=== PATIENT | female | born 1935 | race Caucasian/White ===

== ENCOUNTER 2019-03-16 15:11 | Observation (INO) ==
[2019-03-16 16:09] LABS: Basophils # 0.1 K/mm3 (0-0.2); Basophils % 0.5 % (0.1-2.0); Eosinophils # 0.1 K/mm3 (0.0-0.4); Eosinophils % 0.9 % (0.1-12.0); Hematocrit 35.7 % (37.0-47.0); Hemoglobin 12.4 g/dL (12.2-16.2); Lymphocytes # 2.6 K/mm3 (0.7-4.5); Lymphocytes % 17.7 % (10-50); Mean Corpuscular HGB Conc 34.7 g/dL (31.8-35.4); Mean Corpuscular Hemoglobin 32.1 pg (27.0-31.2); Mean Corpuscular Volume 92.4 fl (81-99); Mean Platelet Volume 7.5 fl (7.4-10.4); Monocytes # 0.9 K/mm3 (0.1-1.0); Neutrophils # 10.8 K/mm3 (1.8-7.8); Platelet Count 351 K/mm3 (142-424); Red Blood Count 3.86 M/mm3 (4.20-5.40); Red Cell Distribution Width 13.7 % (11.5-17.5); White Blood Count 14.4 K/mm3 (4.8-10.8)
--- NOTE | 2019-03-16 16:11 | Emergency Department Note ---
ED Disposition Clinical Impression: Confusion Altered mental status Qualifiers: Altered mental status type: unspecified Qualified Code(s): R41.82 - Altered mental status, unspecified Speech abnormality Qualifiers: Speech disturbance type: unspecified speech disturbance Qualified Code(s): R4 7.9 - Unspecified speech disturbances Disposition: Admitted as Observation Condition on Discharge: [facility] Critical Care Critical Care Time: No Attestation: On 03/16/19, the high probability of a clinically significant, sudden or life threatening deterioration of the following system(s) required my full and direct attention, intervention and personal management. The time I documented below is in addition to time spent performing reported procedures but includes the following listed in this critical care notation. Medical Decision Making - James Inquiry Pt receiving controlled substance: Yes James was queried for this patient: Yes Reference #:: [id number] Risks and benefits of using a controlled substance: were not discussed with pt by me Comment: 16 rxs. last rx 30 norco 4/ Vital Signs: 03/16/19 15:20 03/16/19 15:42 03/16/19 16:50 Temperature 98.3 F Temperature Source Oral Pulse Rate [Right Radial] 110 H 106 H 104 H Respiratory Rate 20 20 20 Blood Pressure [Right Arm] 155/91 H 156/96 H 162/81 H Blood Pressure Mean [Right Arm] 112 116 108 Blood Pressure Source [Right Arm] Automatic Cuff Automatic Cuff Automatic Cuff Blood Pressure Position [Right Arm] Sitting Sitting Sitting 02 Sat by Pulse Oximetry 95 98 99 Oxygen Delivery Method Room Air Room Air Room Air - Lab Data Lab Results 03/16/19 15:30: WBC 14.4 H, RBC 3.86 L, Hgb 12.4, Hct 35.7 L, MCV 92.4, MCH 32.1 H, MCHC 34.7, RDW 13.7, Plt Count 351, MPV 7.5, Neut % (Auto) 75.0, Lymph % (Auto) 17.7, [place] % (Auto) 6.0, Eos % (Auto) 0.9, Baso % (Auto) 0.5, Neut # (Auto) 10.8 H, Lymph # (Auto) 2.6, [place] # (Auto) 0.9, Eos # (Auto) 0.1, Baso # (Auto) 0.1 03/16/19 15:30: Sodium 130 L, Potassium 3.6, Chloride 94 L, Carbon Dioxide 27, Anion Gap 12.6, BUN 13, Creatinine 0.66, Estimated Creat Clear 31, Estimated GFR 86, Est GFR ( Amer) 103, Glucose 93, Calcium 8.7, Total Bilirubin 0.5, AST 29, ALT 28, Alkaline Phosphatase 124 H, Total Protein 7.8, Albumin 3.9, Globulin 3.9 H, Albumin/Globulin Ratio 1.0 L 03/16/19 15:30: TSH 4.53 H 03/16/19 15:30: Troponin I < 0.02 03/16/19 15:49: Urine Color Straw, Urine Appearance Clear, Urine pH 7.0, Ur Specific [place] <= 1.005, Urine Protein Negative, Urine Glucose (UA) Negative, Urine Ketones Negative, Urine Blood 2+, Urine Nitrate Negative, Urine Bilirubin Negative, Urine Urobilinogen 0.2, Ur Leukocyte Esterase Negative, Urine RBC 3-5, Urine WBC Occasional, Ur Squamous Epith Cells Occasional, Urine Bacteria Trace Result diagrams: 03/16/19 15:30 03/16/19 15:30 Orders (Tests/Meds): ED MEDICATIONS Generic Name Dose Route Start Last Admin Trade Name Freq PRN Reason Stop Dose Admin Sodium Chloride 2 ml 03/16/19 17:18 Saline Flush 10ml Syringe IV 04/15/19 17:17 NEEDED PRN to Dilute Lorazepam inj Discontinued Medications Generic Name Dose Route Start Last Admin Trade Name Freq PRN Reason Stop Dose Admin Lorazepam 0.5 mg 03/16/19 17:18 03/16/19 17:29 Ativan 2mg/Ml Vial IV 03/16/19 17:19 0.5 mg ONCE ONE Administration Morphine Sulfate 4 mg 03/16/19 16:40 03/16/19 16:43 Morphine 4mg/Ml Syringe IV 03/16/19 16:41 4 mg ONCE ONE Administration Ondansetron HCl 4 mg 03/16/19 16:40 03/16/19 16:43 Zofran 4mg/2ml Vial IV 03/16/19 16:41 4 mg ONCE ONE Administration ORDERS Category Date Time Status XR chest portable Stat Exams 03/16/19 16:53 Ordered - CT Data CT Scan: Head Time Received: 16:[address] Reviewed: Yes: I have viewed the radiologist's interpretation Preliminary Findings: Normal/NAD - ECG Data Tracing #1 EKG interpreted by Omar Pichardo MD: Rhythm: sinus tachycardia Rate: 104 [place]: normal Ectopy: none Conduction: normal ST Segment Changes: none T Wave Changes: none Q Waves: none No evidence of acute ischemia or injury - Physician Consults Physician Consulted: Artem Richey Time: 17:18 Reason -: Admission Comment/Response: Agrees to admit the patient to the hospital. We discussed the patient's clinical information, including history, exam, laboratory and radiology results and ED course. Per hospital procedure, I will write temporary bridge inpatient orders on the patient. Specific orders requested by the admitting physician: IV fluids, low-dose morphine 1 mg every 4 hours as needed for severe pain, Ativan 0.5 mg every 6 hours as needed for agitation. General Adult HPI - General Chief complaint: Altered Mental Status Stated complaint: Pain Time Seen by Provider: 03/16/19 16:25 Mode of Arrival: Ambulatory Limitations: No Limitations Description of Symptoms (Recalled from ER Triage Doc. by RN): Pt son reports pt has been c/o pain in neck and shoulders today and has been confused. Pt son reports pt has had periods of confusion before when in pain. Pt son reports he has been with pt since 2:30 this afternoon and confusion and random speech has gotten worse. Pt unable to restate , pt not oriented. [facility] staff called service captain of pt, states pt is not acting her normal today, states pt has been going in and outside multiple times t/o the day, sitting down in the rocks outside. States pt has hx of chronic pain, reports pt was given "a pain pill" at 1200 today. States they "dipped" pts urine today and it was negative - History of Present Illness HPI narrative: History obtained from patient and son. She is brought from [facility]. Patient complains of pain all over. Son states that she has been confused today, very restless. He says that she gets this way whenever she is in pain. He also notices in the emergency room that she is having difficulty speaking. She does fine with yes and no questions, but otherwise is difficult to understand. With previous episodes, her speech has not been this bad. She has a history of chronic low back pain. She had surgery in November. She was discharged home, but then developed colitis and was admitted to [facility]. After that she had an episode where she fell out of bed, and has since been permanently admitted to [facility]. Son states that she is supposed to be on hydrocodone 3 times a day, but he says that he has reviewed her medications with staff at [facility] and she has only gotten 2 doses in the past week. She is requesting pain medication. He questions whether she could be in withdrawal. He says she has not otherwise been ill recently, no fevers, vomiting, diarrhea, cough, urinary symptoms. - Related Data Home Medications Medication Instructions Recorded Confirmed baclofen 10 mg tablet 10 mg PO BID PRN 01/27/19 03/16/19 docusate sodium 100 mg capsule 100 mg PO DAILY 01/27/19 03/16/19 latanoprost 0.005 % eye drops 1 drp OPHTHALMIC QPM 01/27/19 03/16/19 levothyroxine 88 mcg tablet 88 mcg PO .every other day tab 01/27/19 03/16/19 meloxicam 7.5 mg tablet 7.5 mg PO DAILY 01/27/19 03/16/19 Hydrocod/Acet 5/325 mg [[place] 1 tab PO TID 03/16/19 03/16/19 5/325mg tablet] Allergies Allergy/AdvReac Type Severity Reaction Status Date / Time No Known Allergies Allergy Verified 03/07/19 15:50 [facility] History - Hepatitis A Screen Drug use history?: No High risk sexual behaviors?: No History of sexually transmitted infection?: No Currently employed?: No Childcare worker?: No Do you have indoor plumbing?: Yes Do you have electricity?: Yes Attestation statement:: This patient has been screened for Hepatitis A risk factors. I have reviewed the patient's past medical history: Yes Medical History: Reports:: Osteoporosis Denies:: Diabetes Mellitus Type 1, Diabetes Mellitus Type 2 Other Medical History: Reports: Osteoporosis, Thyroid Disease, Other (chronic pain ) Amputation: No - Social History Smoking Status: Unknown if ever smoked Alcohol Intake: never Occupational Status: retired Housing: assisted living facility - Psychiatric History Expresses thoughts of harming self/others: None Suicide Plan Description: No Plan ROS Obtained: Yes All systems reviewed & no additional complaints, Yes other (Whole body hurts) - Constitutional Constitutional: Denies fever(s) - Respiratory Respiratory: No cough, No dyspnea - Gastrointestinal Gastrointestingal: Denies: diarrhea, nausea, vomiting - Neurologic Neurologic: Reports as per HPI Physical Exam - General General appearance: alert, anxious, other (Very restless and anxious) - Head Head exam: atraumatic, normocephalic - Eye Eye exam: Present: normal appearance, PERRL, EOMI - ENT ENT exam: Present: mucous membranes moist - Neck Neck exam: Present: normal inspection, full ROM. Absent: meningismus - Chest Chest inspection: Present: normal inspection, symmetric chest wall rise - Respiratory Respiratory exam: Present: normal lung sounds bilaterally. Absent: respiratory distress - Cardiovascular Cardiovascular exam: Present: regular rate, normal rhythm, normal heart sounds - Abdominal Exam Abdominal exam: Present: soft, normal bowel sounds. Absent: distention - Extremities Exam Extremities exam: Present: normal inspection, full ROM. Absent: pedal edema, joint swelling - Neurological Exam Neurological exam: Present: alert, CN II-XII intact. Absent: motor sensory def icit - Psychiatric Psychiatric exam: Present: anxious - Skin Skin exam: Present: warm, dry
[2019-03-16 16:18] LABS: Albumin Level 3.9 gm/dL (3.4-5.0); Anion Gap 12.6 mEq/L (5-15); Bilirubin,Total 0.5 mg/dL (0.2-1.0); Calcium 8.7 mg/dL (8.5-10.1); Globulin 3.9 gm/dl (1.3-3.2); Potassium 3.6 mmoL/L (3.5-5.1); Total Protein,Serum 7.8 gm/dL (6.4-8.2)
[2019-03-16 16:24] LABS: Microscopic, Urine URINE MICROSCOPIC (MICROSCOPIC)
[2019-03-16 16:26] LABS: Appearance,Urine CLEAR (Clear); Bilirubin,Urine Negative (Negative); Blood, Urine 2+ (Negative); Color,Urine STRAW (Yellow); Glucose,Urine (UA) Negative (Negative); Ketones,Urine Negative (Negative); Leukocyte Esterase,Urine Negative (Negative); Protein,Urine Negative (Negative); Specific Gravity, Urine <= 1.005 (1.005-1.030); Urobilinogen,Urine 0.2 EU/dl (0.2)
[2019-03-16 16:35] LABS: Squamous Epithelial Cell,Urine Occasional #/hpf (0-5); WBC,Urine Occasional #/hpf (0-3)
[2019-03-16 16:36] LABS: Bacteria,Urine Trace /lpf
--- NOTE | 2019-03-17 07:21 | Pharmacy Consult Notes ---
[facility] Pharmacy VTE Monitoring - Patient Demographics Admission date: 03/16/19 Report Date: 03/17/19 Time: 07:20 Allergies/Adverse Reactions: Patient Allergies No Known Allergies Allergy (Verified 03/07/19 15:50) Height: 1.68 m Weight: 50.944 kg Patient Problems: Current Active Problems (Updated 03/16/19 @ 18:07 by Omar Pichardo MD) Confusion (Acute) Altered mental status (Acute) Speech abnormality (Acute) - VTE Risk Labs: VTE Related Lab Results Hgb 12.4 g/dL (12.2-16.2) 03/16/19 15:30 Hct 35.7 % (37.0-47.0) L 03/16/19 15:30 Plt Count 351 K/mm3 (142-424) 03/16/19 15:30 BUN 13 mg/dL (7-18) 03/16/19 15:30 Creatinine 0.66 mg/dL (0.55-1.02) 03/16/19 15:30 Estimated Creat Clear 31 mL/min (50-200) 03/16/19 15:30 Was VTE Risk Assessment Performed: Yes VTE Score: 1 VTE Risk Level: Very Low Risk Clinical Trial Participant: No - Prophylaxis VTE Prophylaxis Ordered?: Yes Types of VTE Prophylaxis: TEDS Knee High Location of Applied Device: Bilateral Lower Extremeties
--- NOTE | 2019-03-17 14:19 | History & Physical Report ---
*Admission Date: 03/16/19 *Chief complaint: confusion *History of present illness: this wf was brought by family to ed for eval of confusion - pt has occ faalls and has chronic back pain and was felt to be different than baseline by [facility] staff and family - no reported fever - she was seen in the ed -t son reports pt has been c/o pain in neck and shoulders today and has been confused. Pt son reports pt has had periods of confusion before when in pain. Pt son reports he has been with pt since 2:30 this afternoon and confusion and random speech has gotten worse. Pt unable to restate , pt not oriented. [facility] staff called seating captain of pt, states pt is not acting her normal today, states pt has been going in and outside multiple times t/o the day, sitting down in the rocks outside. States pt has hx of chronic pain, reports pt was given "a pain pill" at 1200 today. States they "dipped" pts urine today and it was negative History obtained from patient and son. She is brought from [facility]. Patient complains of pain all over. Son states that she has been confused today, very restless. He says that she gets this way whenever she is in pain. He also notices in the emergency room that she is having difficulty speaking. She does fine with yes and no questions, but otherwise is difficult to understand. With previous episodes, her speech has not been this bad. She has a history of chronic low back pain. She had surgery in November. She was discharged home, but then developed colitis and was admitted to [facility]. After that she had an episode where she fell out of bed, and has since been permanently admitted to [facility]. Son states that she is supposed to be on hydrocodone 3 times a day, but he says that he has reviewed her medications with staff at [facility] and she has only gotten 2 doses in the past week. She is requesting pain medication. He questions whether she could be in withdrawal. He says she has not otherwise been ill recently, no fevers, vomiting, diarrhea, cough, urinary symptoms. pt was admitted for eval and fluids [facility] History I have reviewed the patient's past medical history: Yes Medical History: Reports:: Osteoporosis Denies:: Cancer, Diabetes Mellitus Type 1, Diabetes Mellitus Type 2, MRSA *Have you ever received a pneumonia vaccine?: Yes *Have you received a flu vaccine this season?: Yes Other Medical History: Reports: Osteoporosis, Thyroid Disease (hypothyroidism), Other (chronic pain ) Amputation: No - *Social History Educational Level: Attended College Smoking Status: Unknown if ever smoked Alcohol Intake: never *Occupational Status:: retired Housing: assisted living facility *Travel in the last 8 weeks: Inside the [place] - Psychiatric History Expresses thoughts of harming self/others: None Suicide Plan Description: No Plan Family Hx:: Cancer Review of Systems - Review of Systems Review of systems:: pertinent systems reviewed and negative unless documented below - Constitutional Reports weakness, Denies fever(s) - Eyes Denies change in vision - ENT Denies sore throat - *Cardiovascular Denies chest pain at rest - *Respiratory Denies cough - *Gastrointestinal Reports nausea, Denies abdominal pain - *Genitourinary Denies blood in urine - *Musculoskeletal Reports joint pain, Reports back pain - Integumentary/Breasts Denies rash - *Neurologic Reports confusion, Reports frequent falls, Denies seizure-like activity - Psychiatric Reports anxiety Meds Home Medications Medication Instructions Recorded Confirmed Type baclofen 10 mg tablet 10 mg PO BIDP PRN 01/27/19 03/17/19 History docusate sodium 100 mg capsule 100 mg PO DAILY 01/27/19 03/17/19 History latanoprost 0.005 % eye drops 1 drp OPHTHALMIC QPM 01/27/19 03/17/19 History levothyroxine 88 mcg tablet 88 mcg PO Q48H tab 01/27/19 03/17/19 History meloxicam 7.5 mg tablet 7.5 mg PO DAILY 01/27/19 03/17/19 History Hydrocod/Acet 5/325 mg [[place] 1 tab PO TIDP PRN 03/16/19 03/17/19 History 5/325mg tablet] Acetaminophen [Tylenol 325mg 650 mg PO Q6HP PRN 03/17/19 03/17/19 History Tablet] Acetaminophen/Diphenhydramine 1 each PO HS 03/17/19 03/17/19 History [Tylenol Pm Ex-Strength Caplet] Ondansetron HCl [Ondansetron 4mg 8 mg PO Q8HP PRN 03/17/19 03/17/19 History Tablet] Polyethylene Glycol 3350 [Miralax 17 gm PO DAILYP PRN 03/17/19 03/17/19 History Powder] Polyvinyl Alcohol/Povidone 1 drp EYE-LEFT Q1H 03/17/19 03/17/19 History [Artificial Tears Drops] Tobramycin [Tobrex] 5 ml EYE-LEFT QID 03/17/19 03/17/19 History Allergies Allergy/AdvReac Type Severity Reaction Status Date / Time No Known Allergies Allergy Verified 03/07/19 15:50 Exam Vital signs and Labs for Last 24 Hours: Temp Pulse Resp BP Pulse Ox 98.3 F 91 H 16 117/63 97 03/17/19 08:00 03/17/19 08:00 03/17/19 08:00 03/17/19 08:00 03/17/19 08:00 Laboratory Results - last 24 hr 03/16/19 15:30: WBC 14.4 H, RBC 3.86 L, Hgb 12.4, Hct 35.7 L, MCV 92.4, MCH 32.1 H, MCHC 34.7, RDW 13.7, Plt Count 351, MPV 7.5, Neut % (Auto) 75.0, Lymph % (Auto) 17.7, [place] % (Auto) 6.0, Eos % (Auto) 0.9, Baso % (Auto) 0.5, Neut # (Auto) 10.8 H, Lymph # (Auto) 2.6, [place] # (Auto) 0.9, Eos # (Auto) 0.1, Baso # (Auto) 0.1 03/16/19 15:30: Sodium 130 L, Potassium 3.6, Chloride 94 L, Carbon Dioxide 27, Anion Gap 12.6, BUN 13, Creatinine 0.66, Estimated Creat Clear 31, Estimated GFR 86, Est GFR ( Amer) 103, Glucose 93, Calcium 8.7, Total Bilirubin 0.5, AST 29, ALT 28, Alkaline Phosphatase 124 H, Total Protein 7.8, Albumin 3.9, Globulin 3.9 H, Albumin/Globulin Ratio 1.0 L 03/16/19 15:30: TSH 4.53 H 03/16/19 15:30: Troponin I < 0.02 03/16/19 15:49: Urine Color Straw, Urine Appearance Clear, Urine pH 7.0, Ur Specific [place] <= 1.005, Urine Protein Negative, Urine Glucose (UA) Negative, Urine Ketones Negative, Urine Blood 2+, Urine Nitrate Negative, Urine Bilirubin Negative, Urine Urobilinogen 0.2, Ur Leukocyte Esterase Negative, Urine RBC 3-5, Urine WBC Occasional, Ur Squamous Epith Cells Occasional, Urine Bacteria Trace I & O for Last 24 hours: Intake & Output 03/15/19 03/16/19 03/17/19 03/18/19 11:59 11:59 11:59 11:59 Intake Total 360 / 360 Output Total 200 / 200 Balance 160 / 160 Weight 112 lb 5 oz - Constitutional no acute distress - *Routine HEENT Exam Head: Present: normocephalic Eye: Present: EOMI, PERRL ENT: Present: mucous membranes dry - *Routine Neck Exam Absent: JVD - *Routine Respiratory Exam Present: CTA bilaterally - *Routine Cardiovascular Exam Present: RRR, murmur, S4 - *Routine Abdominal Exam Present: soft - *Routine Extremities Exam Absent: calf tenderness - *Routine Skin Exam Present: intact - *Routine Neurological Exam Present: alert, CN II-XII intact - Routine Psychiatric Exam Present: anxious Assessment and Plan (1) Acute delirium Current visit: Yes Status: Acute Category: Medical Code(s): R41.0 - Disorientation, unspecified (2) Chronic pain Current visit: No Status: Chronic Qualifiers: Chronic pain type: chronic pain syndrome Qualified Code(s): G89.4 - Chronic pain syndrome Category: Medical Code(s): G89.29 - Other chronic pain (3) Hypothyroidism Current visit: No Status: Chronic Qualifiers: Hypothyroidism type: other Qualified Code(s): E03.8 - Other specified hypothyroidism Category: Medical Code(s): E03.9 - Hypothyroidism, unspecified (4) Hyponatremia Current visit: Yes Status: Acute Category: Medical Code(s): E87.1 - Hypo- osmolality and hyponatremia
--- NOTE | 2019-03-17 17:15 | Consult Report ---
*Admission Date: 03/16/19 *Chief complaint: Behavioral Health consult for altered mental status *History of present illness: Patient came to the hospital on 03.16.2019 for AMS from the snf. -today when I see her she is completely alert and oriented X3 -she is sitting up in a chair waiting on supper to be delivered to her room -her niece and great niece are in the room with her She states that the whole reason she came here was related to not sleeping. She states that she did not sleep good for over 2 weeks. That she would go to sleep and be up and hour later. Then she would not be able to fall back to sleep for 6-7 hours; then only sleep another hour at a time. She states that this went on for days and the medicine they gave her did not help her sleep any. She has had a lot of stressors lately: -her passed in July 2018 -she had surgery in January 2019 -went to a snf in January 2019 -had to sell her house; consolidate all her things -it has been hard She denies any depression. Does admit to some anxiety; but states that it is manageable. RECOMMENDATIONS: 1. Order Ativan 0.5mg orally; PRN BID--may take for increased anxiety or at bedtime for sleep. 2. I would discontinue anything else that she has ordered at this time for sleep. [facility] History Medical History: Reports:: Osteoporosis Denies:: Cancer, Diabetes Mellitus Type 1, Diabetes Mellitus Type 2, MRSA *Have you ever received a pneumonia vaccine?: Yes *Have you received a flu vaccine this season?: Yes Other Medical History: Reports: Osteoporosis, Thyroid Disease (hypothyroidism), Other (chronic pain ) Amputation: No - *Social History Educational Level: Attended College Smoking Status: Unknown if ever smoked Alcohol Intake: never *Occupational Status:: retired Housing: assisted living facility *Travel in the last 8 weeks: Inside the [place] - Psychiatric History Expresses thoughts of harming self/others: None Suicide Plan Description: No Plan Family Hx:: Cancer Review of Systems - *Neurologic Reports confusion, Reports frequent falls, Reports weakness, Denies seizure-like activity Meds Home Medications Medication Instructions Recorded Confirmed Type baclofen 10 mg tablet 10 mg PO BIDP PRN 01/27/19 03/17/19 History docusate sodium 100 mg capsule 100 mg PO DAILY 01/27/19 03/17/19 History latanoprost 0.005 % eye drops 1 drp OPHTHALMIC QPM 01/27/19 03/17/19 History levothyroxine 88 mcg tablet 88 mcg PO Q48H tab 01/27/19 03/17/19 History meloxicam 7.5 mg tablet 7.5 mg PO DAILY 01/27/19 03/17/19 History Hydrocod/Acet 5/325 mg [[place] 1 tab PO TIDP PRN 03/16/19 03/17/19 History 5/325mg tablet] Acetaminophen [Tylenol 325mg 650 mg PO Q6HP PRN 03/17/19 03/17/19 History Tablet] Acetaminophen/Diphenhydramine 1 each PO HS 03/17/19 03/17/19 History [Tylenol Pm Ex-Strength Caplet] Ondansetron HCl [Ondansetron 4mg 8 mg PO Q8HP PRN 03/17/19 03/17/19 History Tablet] Polyethylene Glycol 3350 [Miralax 17 gm PO DAILYP PRN 03/17/19 03/17/19 History Powder] Polyvinyl Alcohol/Povidone 1 drp EYE-LEFT Q1H 03/17/19 03/17/19 History [Artificial Tears Drops] Tobramycin [Tobrex] 5 ml EYE-LEFT QID 03/17/19 03/17/19 History Allergies Allergy/AdvReac Type Severity Reaction Status Date / Time No Known Allergies Allergy Verified 03/07/19 15:50 Exam Vital signs and Labs for Last 24 Hours: Temp Pulse Resp BP Pulse Ox 97.9 F 97 H 16 114/64 98 03/17/19 16:00 03/17/19 16:00 03/17/19 16:00 03/17/19 16:00 03/17/19 16:00 Laboratory Results - last 24 hr 03/16/19 15:30: TSH 4.53 H 03/16/19 15:30: Troponin I < 0.02 I & O for Last 24 hours: Intake & Output 03/15/19 03/16/19 03/17/19 03/18/19 11:59 11:59 11:59 11:59 Intake Total 360 / 360 360 / 360 Output Total 200 / 200 700 / 700 Balance 160 / 160 -340 / -340 Weight 112 lb 5 oz 112 lb 4.997 oz Internal Medicine - CN: Reslt - Labs CBC & Chem 7: 03/16/19 15:30 03/16/19 15:30 Labs: Cardiac Enzymes 03/16/19 Range/Units 15:30 Troponin I < 0.02 (0.00-0.06) ng/ml Assessment and Plan (1) Acute delirium Current visit: Yes Status: Acute Category: Medical Code(s): R41.0 - Disorientation, unspecified (2) Chronic pain Current visit: No Status: Chronic Qualifiers: Chronic pain type: chronic pain syndrome Qualified Code(s): G89.4 - Chronic pain syndrome Category: Medical Code(s): G89.29 - Other chronic pain (3) Hypothyroidism Current visit: No Status: Chronic Qualifiers: Hypothyroidism type: other Qualified Code(s): E03.8 - Other specified hypothyroidism Category: Medical Code(s): E03.9 - Hypothyroidism, unspecified (4) Hyponatremia Current visit: Yes Status: Acute Category: Medical Code(s): E87.1 - Hypo- osmolality and hyponatremia
--- NOTE | 2019-03-18 08:56 | Discharge Summary ---
General - General Admission date:: 03/16/19 Discharge date: 03/18/19 HPI HPI: this wf was brought by family to ed for eval of confusion - pt has occ faalls and has chronic back pain and was felt to be different than baseline by [facility] staff and family - no reported fever - she was seen in the ed -t son reports pt has been c/o pain in neck and shoulders today and has been confused. Pt son reports pt has had periods of confusion before when in pain. Pt son reports he has been with pt since 2:30 this afternoon and confusion and random speech has gotten worse. Pt unable to restate , pt not oriented. [facility] staff called captain waiter/waitress of pt, states pt is not acting her normal today, states pt has been going in and outside multiple times t/o the day, sitting down in the rocks outside. States pt has hx of chronic pain, reports pt was given "a pain pill" at 1200 today. States they "dipped" pts urine today and it was negative History obtained from patient and son. She is brought from [facility]. Patient complains of pain all over. Son states that she has been confused today, very restless. He says that she gets this way whenever she is in pain. He also notices in the emergency room that she is having difficulty speaking. She does fine with yes and no questions, but otherwise is difficult to understand. With previous episodes, her speech has not been this bad. She has a history of chronic low back pain. She had surgery in November. She was discharged home, but then developed colitis and was admitted to [facility]. After that she had an episode where she fell out of bed, and has since been permanently admitted to [facility]. Son states that she is supposed to be on hydrocodone 3 times a day, but he says that he has reviewed her medications with staff at [facility] and she has only gotten 2 doses in the past week. She is requesting pain medication. He questions whether she could be in withdrawal. He says she has not otherwise been ill recently, no fevers, vomiting, diarrhea, cough, urinary symptoms. pt was admitted for eval and fluids Hospital Course Hospital Course: Patient was admitted for altered mental status. ams-CT of head negative chest x ray-neg Patient states she believes her altered mental status was due to her not receiving her pain medicine and not sleeping. Patient states she had taken her pain medicine for many years every day 3 times a day and for the last couple weeks she is only received it a couple of times. Patient states she was having a lot of pain and not sleeping. While in the hospital was given IV pain medicine and Ativan to help with anxiety. Patient states she is doing well today. UTI-culture still pending we will treat with Keflex until culture resulted. Pain-discussed with son he prefers to schedule her Novi 3 times a day if increased sedation will change to scheduled twice a day and give 1 dose as needed. Anxiety-Ativan 0.25mg twice a day scheduled per recommendations from Kelly Jeff Objective Vital signs: Temp Pulse Resp BP Pulse Ox 98.0 F 90 18 111/64 94 L 03/18/19 08:00 03/18/19 08:00 03/18/19 08:00 03/18/19 08:00 03/18/19 08:00 no acute distress - *Routine HEENT Exam Head: Present: normocephalic Eye: Present: PERRL ENT: Present: mucous membranes moist - *Routine Respiratory Exam Present: CTA bilaterally - *Routine Cardiovascular Exam Present: RRR - *Routine Abdominal Exam Present: soft, normoactive bowel sounds. Absent: tenderness - *Routine Extremities Exam Present: full ROM - *Routine Skin Exam Present: intact - *Routine Neurological Exam Present: alert, oriented X3 - Routine Psychiatric Exam Present: normal affect, normal thought process Results - Additional Comments rounded with Dr Richey all orders per Dr Richey DS: Diagnosis - Discharge Diagnosis (1) Acute delirium Status: Acute (2) Chronic pain Status: Chronic (3) Hypothyroidism Status: Chronic (4) Hyponatremia Status: Acute Discharge Plan - Patient Discharge Instructions ACTIVITY: Continue current activity DIET: continue same diet - Follow up Plan Follow up with: Portillo Hurley APRN [Advanced Practice Nurse] - 03/23/19 Disposition: Home, Self-Long-Term Medications: Home Medications Medication Instructions Recorded Confirmed Type baclofen 10 mg tablet 10 mg PO BIDP PRN 01/27/19 03/17/19 History docusate sodium 100 mg capsule 100 mg PO DAILY 01/27/19 03/17/19 History latanoprost 0.005 % eye drops 1 drp OPHTHALMIC QPM 01/27/19 03/17/19 History levothyroxine 88 mcg tablet 88 mcg PO Q48H tab 01/27/19 03/17/19 History meloxicam 7.5 mg tablet 7.5 mg PO DAILY 01/27/19 03/17/19 History Hydrocod/Acet 5/325 mg [Novi 1 tab PO TIDP PRN 03/16/19 03/17/19 History 5/325mg tablet] Acetaminophen [Tylenol 325mg 650 mg PO Q6HP PRN 03/17/19 03/17/19 History Tablet] Acetaminophen/Diphenhydramine 1 each PO HS 03/17/19 03/17/19 History [Tylenol Pm Ex-Strength Caplet] Ondansetron HCl [Ondansetron 4mg 8 mg PO Q8HP PRN 03/17/19 03/17/19 History Tablet] Polyethylene Glycol 3350 [Miralax 17 gm PO DAILYP PRN 03/17/19 03/17/19 History Powder] Polyvinyl Alcohol/Povidone 1 drp EYE-LEFT Q1H 03/17/19 03/17/19 History [Artificial Tears Drops] Tobramycin [Tobrex] 5 ml EYE-LEFT QID 03/17/19 03/17/19 History LORazepam [Ativan 0.5mg 0.5 mg PO BID 30 Days #60 tab 03/18/19 Rx tablet] cephALEXin [Keflex 500mg Cap] 500 mg PO BID 10 Days #20 cap 03/18/19 Rx Prescriptions/Medication Reconciliation: New LORazepam [Ativan 0.5mg tablet] 0.5 mg PO BID 30 Days #60 tab cephALEXin [Keflex 500mg Cap] 500 mg PO BID 10 Days #20 cap Continued meloxicam 7.5 mg tablet 7.5 mg PO DAILY docusate sodium 100 mg capsule 100 mg PO DAILY baclofen 10 mg tablet 10 mg PO BIDP PRN PRN Reason: MUSCLE SPASMS latanoprost 0.005 % eye drops 1 drp OPHTHALMIC QPM levothyroxine 88 mcg tablet 88 mcg PO Q48H tab Ondansetron HCl [Ondansetron 4mg Tablet] 8 mg PO Q8HP PRN PRN Reason: Nausea/VOMITING Polyethylene Glycol 3350 [Miralax Powder] 17 gm PO DAILYP PRN PRN Reason: Constipation Tobramycin [Tobrex] 5 ml EYE-LEFT QID Acetaminophen [Tylenol 325mg Tablet] 650 mg PO Q6HP PRN PRN Reason: As Needed For Fever Or Pain Polyvinyl Alcohol/Povidone [Artificial Tears Drops] 1 drp EYE-LEFT Q1H Changed Hydrocod/Acet 5/325 mg [Novi 5/325mg tablet] 1 tab PO TID PRN #0 PRN Reason: PAIN Discontinued Acetaminophen/Diphenhydramine [Tylenol Pm Ex-Strength Caplet] 1 each PO HS
== END 2019-03-18 09:49 | disposition home or self-care (01) ==
LOC: ER 15:11 → 2ND 15:11
PROVIDERS: ADMIT Internal Medicine Adolescent Medicine; ATTEND Emergency Medicine
CPT/HCPCS: 70450; 71010; 71045; 80053; 81001; 84443; 84484; 85025; 87086; 93005; 96374; 96375; 99285; G0378; J2405

== ENCOUNTER → 2019-05-27 09:08 | Outpatient (CLI) | payer MEDICARE, SELFPAY ==
--- NOTE | 2019-05-27 09:28 | XR_ITS ---
XR shoulder RT min 2V HISTORY: ITS.REASON: right shoulder pain ORDERING PHYSICIAN: Margie Perrin MD PATIENT AGE: 84 years Comparison: None FINDINGS: There are severe osteoarthritic changes of the right glenohumeral joint was some subchondral sclerosis of the right humeral head with mild dysplastic changes of the humeral head and prominent osteophyte along the medial aspect of the humeral head/neck junction. There is a flocculent area of calcification anterior to the neck of the humerus measuring approximately 3 cm. This appears somewhat more well-circumscribed on the axillary Y view and may represent a synovial osteochondroma which may be confirmed with MRI clinically desired. No acute fracture or dislocation. No lytic or blastic change. IMPRESSION: Severe osteoarthritis of the right shoulder as described above with calcification anterior to the neck of the humerus which may be due to a synovial osteochondroma which could be confirmed with MRI if clinically desired
== END ==
PROVIDERS: PCP Emergency Medicine; Visit Provider Orthopaedic Surgery
DX: M25.511 Pain in right shoulder (principal)
CPT/HCPCS: 73030

== ENCOUNTER → 2019-06-01 08:48 | Outpatient (CLI) | payer MEDICARE, SELFPAY ==
--- NOTE | 2019-06-01 09:36 | MR_ITS ---
MR shoulder RT wo/w con HISTORY: ITS.REASON: Mass ORDERING PHYSICIAN: Margie Perrin MD PATIENT AGE: 84 years Comparison: None TECHNIQUE: Standard multiplanar multiecho sequences are performed without contrast. FINDINGS: There is some flattening of the humeral head with fairly extensive subchondral cyst formation and prominent inferior subcapital spur. There is glenohumeral joint fluid as well as fluid in the subacromial and subdeltoid bursae. There is a small amount of fluid in the AC joint. There are irregular multiple filling defects the largest is 2.8 cm in the subdeltoid bursa as well as 1.6 cm in the subcoracoid recess of the glenohumeral joint. There is diffuse attenuation of the labrum with truncated appearance at the 12:00 position and posterior lip is attenuated as well. There is severe narrowing of the glenohumeral joint. The low signal of the long head of the biceps tendon and the biceps anchor appear to be intact. Supraspinatus tendon is thickened with central intermediate signal without full thickness signal abnormality. Infraspinatus tendon appear to be intact. Signal from the surrounding muscles appear to be normal. IMPRESSION: Severe osteoarthritis at the glenohumeral joint. 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 Supraspinatus tendinosis. Labral attenuation could be from chronic tear.
[2019-06-01 09:40] LABS: Blood Urea Nitrogen 11 mg/dL (7-18); Creatinine,Serum 0.71 mg/dL (0.55-1.02); Estimated Glomerular Filt Rate 78 ml/min (>60); GFR (African American) 95 ML/MIN (>60)
== END ==
PROVIDERS: PCP Emergency Medicine; Visit Provider Orthopaedic Surgery
DX: R22.31 Localized swelling, mass and lump, right upper limb (principal); M25.811 Other specified joint disorders, right shoulder
CPT/HCPCS: 36415; 73223; 82565; 84520; A9576

== ENCOUNTER 2020-04-15 03:52 | Emergency (ER) | payer MEDICARE, SELFPAY ==
[2020-04-15 03:54] VITALS: BP 182/91; PULSE 81; RESP 16; TEMP 36.7; O2SAT 97; BMI 31.5
--- NOTE | 2020-04-15 04:03 | XR_ITS ---
PROCEDURE: XR CHEST 2V Patient Age:84Y CLINICAL HISTORY: thorasic pain thoracic pain near right shoulder blade. Sensitive to touch but no surgeries this region. COMPARISON: from 03/16/2019 from 05/27/2019 CT ABDOMEN PELVIS WO CON from 08/31/2019 CT THORACIC SPINE WO CON from 04/15/2020 CT T-spine from today FINDINGS: . The lungs are well expanded and clear with nothing definitely acute. No significant change since March 2019 . No infiltrates, nor suspicious nodules.. Stable small calcified granulomas periphery of left mid to lower lung field again observed but no pneumothorax nor r pleural effusions. No new, acute bony abnormalities. T-spine appears stable since prior CXR. Prominent arthritic changes are seen at the right glenohumeral joint with narrowing and sclerosis and hypertrophic changes as well as subchondral cystic changes and sclerosis about this arthritic right shoulder joint. Similar but less pronounced arthritic changes at the left shoulder. The additional sclerosis towards the neck of the humerus is which evident on a right shoulder study from 2019. IMPRESSION: Stable chest. Lungs clear with nothing definitely acute Prominent arthritic changes right shoulder more than left shoulder. Involving right>> left glenohumeral joint.. Dictated by: Peewee Cruz MD 04/15/2020 16:19 Electronically signed by Peewee Cruz MD in [place] 04/15/2020 16:19
--- NOTE | 2020-04-15 04:03 | CT_ITS ---
PROCEDURE: CT THORACIC SPINE WO CON Patient Age:84Y CLINICAL HISTORY: thorasic pain Midthoracic pain midthoracic pain near shoulder blade COMPARISON: No exams were available for comparison TECHNIQUE: Axial images obtained with sagittal and coronal reformats. All CT scans at the facility use one or more dose reduction, viz: automated exposure control, ma/kV adjustment per patient size (including targeted exams where dose is matched to indication, i.e. head), or iterative reconstruction technique. FINDINGS: The T-spine reveals no acute findings. Suggestion of mild demineralization throughout T-spine generally age-appropriate. . Anterior marginal osteophytes most evident at the lower T-spine towards thoracolumbar junction. Also of some marginal osteophytes at the mid upper T-spine but these appear longstanding and reflect mild longstanding degenerative changes. Early degenerative disc changes at T10-11. However most notable at this level are the prominent/exuberant bilateral facet hypertrophy which narrows the spinal canal and appears to efface the lower thoracic cord particularly to the right. The facet hypertrophy yields spinal stenosis at the T10-11 level. Also note facet hypertrophy and posterior element spurring at T5/6 right greater than left. Facet hypertrophy indents posterior thecal sac and most notably encroaches upon the right foramen T5/6-this conceivably could yield nerve impingement conceivably contribute to mid thoracic back pain symptoms, particularly if follows general T5 distribution sagittal 14,-16 Minimal facet hypertrophy and a scant foraminal encroachment Left greater than right at T7/8 sagittal image 21 Scant degenerative facet changes T11/12, T6/7 No paraspinal mass Medial aspect of the posterior lung kim adjacent to the spine kim are clear-only minimal areas of linear scarring and atelectasis most notable towards right base.. Aorta normal caliber with minimal atherosclerotic calcification aortic knob but minimal calcifications hilar regions bilaterally reflecting old granulomatous disease but no no pathologic mediastinal or hilar adenopathy. Upper abdomen. I would note the gallbladder is somewhat distended if there is of persists 3 current back or thoracic pain you may want to consider gallbladder ultrasound to further evaluate. Small benign appearing cyst dome of liver less than 10 mm size IMPRESSION: 1..No compression fractures. No acute findings thoracic spine and no perispinal mass 2..Degenerative changes T-spine-. Facet hypertrophy most notable in this regard, yielding multilevel foraminal encroachment. T10-11 spinal stenosis. Prominent hypertrophic facets indentposterior aspect of the spinal canal right more so than left yielding relative spinal stenosis at T10-11. Appear to efface posterior right aspect of lower thoracic cord.. Trace degenerative disc changes at this level T5/6.. Generous facet hypertrophy right >> left does encroach, impinge upon the right T5-6 neural foramen. T7//8: Facet hypertrophy yields mild encroachment upon the left foramen T7-8 Minimal facet hypertrophy at a few other levels 3.. On final images the gallbladder is noted to be slightly distended. If any RUQ symptoms associated with right shoulder or thoracic pain you may want to consider gallbladder ultrasound. Dictated by: Peewee Cruz MD 04/15/2020 16:00 Electronically signed by Peewee Cruz MD in [facility] 04/15/2020 16:00
--- NOTE | 2020-04-15 04:49 | PC.NURSE ---
returned from rad via and radiology tech
[2020-04-15 05:02] LABS: Basophils # 0.1 K/mm3 (0-0.2); Eosinophils # 0.2 K/mm3 (0.0-0.4); Eosinophils % 2.7 % (0.1-12.0); Hematocrit 40.2 % (37.0-47.0); Hemoglobin 13.7 g/dL (12.2-16.2); Lymphocytes # 3.3 K/mm3 (0.7-4.5); Lymphocytes % 36.2 % (10-50); Mean Corpuscular HGB Conc 34.2 g/dL (31.8-35.4); Mean Corpuscular Hemoglobin 32.5 pg (27.0-31.2); Mean Corpuscular Volume 95.1 fl (81-99); Mean Platelet Volume 6.8 fl (7.4-10.4); Monocytes # 0.4 K/mm3 (0.1-1.0); Monocytes % 4.9 % (1.7-9.3); Neutrophils % 55.1 % (37.0-80.0); Platelet Count 330 K/mm3 (142-424); Red Blood Count 4.22 M/mm3 (4.20-5.40)
[2020-04-15 05:17] LABS: Alanine Aminotransferase 30 U/L (12-78); Albumin Level 4.7 g/dl (3.5-5.0); Albumin/Globulin Ratio 1.4 (1.1-1.8); Alkaline Phosphatase 117 U/L (38-126); Anion Gap 10.9 mEq/L (5-15); Aspartate Amino Transferase 52 U/L (14-36); Bilirubin,Total 0.3 mg/dl (0.2-1.3); Blood Urea Nitrogen 8 mg/dl (7-17); Calcium 9.2 mg/dl (8.4-10.2); Carbon Dioxide 31 mmol/L (22.0-30.0); Chloride 95 mmol/L (98-107); Creatinine Clearance Estimated 53 mL/min (50-200); Estimated Glomerular Filt Rate 95 ml/min (>60); GFR (African American) 115 ML/MIN (>60); Globulin 3.3 g/dL (1.3-3.2); Glucose 95 mg/dl (74-100); Sodium 134 mmol/L (136-145)
[2020-04-15 05:22] LABS: Potassium 2.9 mmoL/L (3.5-5.1)
--- NOTE | 2020-04-15 06:38 | HMH.EDBACK ---
ED Disposition Clinical Impression: Thoracic spine pain Osteopenia Qualifiers: Osteopenia location: spine Qualified Code(s): M85.88 - Other specified disorders of bone density and structure, other site Disposition: Home, Self-Care Condition on Discharge: Good Instructions: DI for Thoracic Back Pain Additional Instructions: use meds and see pcp for follow up Referrals: Yg Richey MD [Primary Care Provider] - - Critical Care Critical Care Time: No Attestation: On 04/15/20, the high probability of a clinically significant, sudden or life threatening deterioration of the following system(s) required my full and direct attention, intervention and personal management. The time I documented below is in addition to time spent performing reported procedures but includes the following listed in this critical care notation. Medical Decision Making - Medical Records Medical records reviewed: Yes: I reviewed the patient's medical records. - James Inquiry Pt receiving controlled substance: No Vital Signs: 04/15/20 03:54 Temperature 98.1 F Temperature Source Oral Pulse Rate [Right] 81 Respiratory Rate 16 Blood Pressure [Right Arm] 182/91 H Blood Pressure Mean [Right Arm] 121 Blood Pressure Source [Right Arm] Automatic Cuff Blood Pressure Position [Right Arm] Supine 02 Sat by Pulse Oximetry 97 Oxygen Delivery Method Room Air - Lab Data Lab results reviewed: Yes: I reviewed the patient's lab results. Lab Results 04/15/20 04:15: WBC 9.0, RBC 4.22, Hgb 13.7, Hct 40.2, MCV 95.1, MCH 32.5 H, MCHC 34.2, RDW 14.0, Plt Count 330, MPV 6.8 L, Neut % (Auto) 55.1, Lymph % (Auto) 36.2, [place] % (Auto) 4.9, Eos % (Auto) 2.7, Baso % (Auto) 1.0, Neut # (Auto) 5.0, Lymph # (Auto) 3.3, [place] # (Auto) 0.4, Eos # (Auto) 0.2, Baso # (Auto) 0.1 04/15/20 04:15: Sodium 134 L, Potassium 2.9 L*, Chloride 95 L, Carbon Dioxide 31 H, Anion Gap 10.9, BUN 8, Creatinine 0.60, Estimated Creat Clear 53, Estimated GFR 95, Est GFR ( Amer) 115, Glucose 95, Calcium 9.2, Total Bilirubin 0.3, AST 52 H, ALT 30, Alkaline Phosphatase 117, Total Protein 8.0, Albumin 4.7, Globulin 3.3 H, Albumin/Globulin Ratio 1.4 Result diagrams: 04/15/20 04:15 04/15/20 04:15 Orders (Tests/Meds): ED MEDICATIONS Generic Name Dose Route Start Last Admin Trade Name Freq PRN Reason Stop Dose Admin Sodium Chloride 1,000 mls @ 999 mls/hr 04/15/20 04:15 04/15/20 04:28 Sod Chlor 0.9% 1000ml Bag IV 04/15/20 05:15 999 mls/hr .Q1H1M PETRA Administration Discontinued Medications Generic Name Dose Route Start Last Admin Trade Name Freq PRN Reason Stop Dose Admin Ketorolac Tromethamine 15 mg 04/15/20 04:03 04/15/20 04:27 Toradol 30mg/Ml Vial IV 04/15/20 04:04 15 mg ONCE ONE Administration Methylprednisolone Sodium Succinate 125 mg 04/15/20 04:03 04/15/20 04:28 Solu-Medrol 125mg/2ml Vial IV 04/15/20 04:04 125 mg ONCE ONE Administration Potassium Chloride 40 meq 04/15/20 05:24 04/15/20 05:31 Klor-Con 20meq Tablet PO 04/15/20 05:25 40 meq ONCE ONE Administration ORDERS Category Date Time Status CT thoracic spine wo con Stat Cat Scan 04/15/20 04:03 Taken XR chest 2V Stat Exams 04/15/20 04:03 Taken Urinalysis and Microscopic Stat Lab 04/15/20 06:25 Ordered - Radiology Data #1 Image(s): Chest Image Reviewed: Yes I reviewed the patient's radiology image Preliminary Findings: Normal/NAD - CT Data CT Scan: T-Spine Time Received: 06:[address] Reviewed: Yes: I have viewed the radiologist's interpretation Preliminary Findings: Abnormal, No Fracture Seen (osteopenia) Back Pain HPI - General Chief Complaint: Back Pain/Injury Stated Complaint: Back Pain Time Seen by Provider: 04/15/20 04:00 Mode of Arrival: EMS Source of Information: Patient, EMS, Medical Record Limitations: No Limitations Description of Symptoms (Recalled from ER Triage Doc. by RN): Pt states she has had mid back pain f
[2020-04-15 06:47] LABS: Appearance,Urine CLEAR (Clear); Bilirubin,Urine Negative (Negative); Blood, Urine 1+ (Negative); Color,Urine YELLOW (Yellow); Glucose,Urine (UA) Negative (Negative); Ketones,Urine Negative (Negative); Leukocyte Esterase,Urine Negative (Negative); Microscopic, Urine URINE MICROSCOPIC (MICROSCOPIC); Nitrate,Urine Negative (Negative); Protein,Urine Negative (Negative); Specific Gravity, Urine <= 1.005 (1.005-1.030); Urobilinogen,Urine 0.2 EU/dl (0.2)
--- NOTE | 2020-04-15 06:49 | PC.NURSE ---
Pt is very restless walking around ER, refuses to stay in room, pulled her IV out, percocet PO given
--- NOTE | 2020-04-15 07:00 | PC.NURSE ---
spoke with cole,nursing at [facility]. stated that their transportation is out of commission; son will be here to picker machine operator patient around 0900 and they would like an updated report at that time. breakfast ordered for patient.
[2020-04-15 07:14] LABS: Squamous Epithelial Cell,Urine Occasional #/hpf (0-5)
--- NOTE | 2020-04-15 07:30 | PC.NURSE ---
Pt given breakfast, currently sitting in bed resting at this time.
[2020-04-15 09:06] VITALS: BP 132/78; PULSE 78; RESP 16; TEMP 36.6; O2SAT 98
--- NOTE | 2020-04-15 09:23 | PC.NURSE ---
report called to Jane Stahl LPN at [facility]
== END 2020-04-15 09:08 | disposition home or self-care (01) ==
PROVIDERS: Emergency Provider Emergency Medicine; PCP Emergency Medicine
DX: M54.6 Pain in thoracic spine (principal); M81.0 Age-related osteoporosis without current pathological fracture; M62.838 Other muscle spasm; F41.9 Anxiety disorder, unspecified; E78.5 Hyperlipidemia, unspecified; E03.9 Hypothyroidism, unspecified; Z87.891 Personal history of nicotine dependence; Z79.899 Other long term (current) drug therapy
CPT/HCPCS: 71046; 72128; 80053; 81001; 85025; 96365; 96375; 99283

== ENCOUNTER → 2020-05-25 10:32 | Outpatient (POV) | payer MEDICARE, SELFPAY ==
[2020-05-25 11:04] VITALS: BP 146/71; PULSE 82; RESP 18; TEMP 36.9; O2SAT 99; BMI 25.9
--- NOTE | 2020-05-25 12:16 | HMH.PMCON ---
Assessment and Plan (1) Degenerative disc disease, thoracic Current visit: Yes Status: Chronic Category: Medical Code(s): M51.34 - Other intervertebral disc degeneration, thoracic region (2) Facet arthropathy, thoracic Current visit: Yes Status: Chronic Category: Medical Code(s): M47.814 - Spondylosis without myelopathy or radiculopathy, thoracic region (3) Thoracic radiculopathy Current visit: Yes Status: Chronic Category: Medical Code(s): M54.14 - Radiculopathy, thoracic region - Assessment and plan all Dx Assessment and Plan for all problems:: The patient and I did have a discussion regarding injective therapy, however, she has tried these therapies and has not gotten relief in the past. She does not want to proceed with further ablation therapy. She denies also discussed possible implanted devices such as spinal cord stimulation or intrathecal therapy. At the patient's age, she is not interested in pursuing any type of plan in implanted devices. She is interested in oral medications. She and I did have a discussion that we do not prescribe oral medications, however, we would be more than happy to offer recommendations. Patient is currently on Elgin 7.5 mg 1 tablet 4 times daily. Given that the patient is not getting long-term relief with the medication, I would recommend increasing the Elgin up to 6 times daily. The patient does not do well with Percocets according to the son. The patient does have oversedation type symptoms when she takes Percocets. She does well with the Elgin at this time, however, it does not seem to last long enough for her she does not want to take any type of topical medications. If giving the medication 6 times daily is not feasible for the facility, the patient may benefit from continuing her Elgin 7.5 mg 1 tablet p.o. 4 times daily and offering 2 additional tablets as needed the same dose. Any increase in the medication at this time may cause oversedation for the patient. The patient will discuss the plan of care with the facility and will follow-up with us in 1 month. We will continue to monitor the patient and offer recommendations in the future. She has been instructed to contact clinic if she has any concerns before next appointment. The patient and I specifically discussed risk factors for COVID19. These risks include, but are not limited to age greater than 60, heart or lung disease, diabetes, immunosuppression, and travel. We also discussed NSAIDs may worsen COVID19 infection or symptoms. Patient should not use NSAIDs to treat COVID19 signs or symptoms. Patient was also informed that any type of corticosteroid of any form (oral or injection) will decrease the patient's immune system response and may increase the likelihood of COVID19 infection [address] symptoms[address]. Mcclendon has reviewed this note and agrees with this plan of care. This note was dictated using voice recognition software and make contain errors or omissions. HPI - Data of Consult Patient: new to practice Consult date: 05/25/20 Requesting Physician: Abby Hickman APRN Primary Care Provider: Yg Richey MD - Consult Narrative Reason for consult: Right mid back pain History of present illness: Ms. Henderson is a 85 year old female presents today for consultation for right shoulder and right mid back pain. Patient says that she has had this pain for greater than 40 years. She has tried multiple modalities of therapy which include physical therapy along with occupational therapy. She has undergone epidural steroid injections along with ablations to her right mid back area. Patient says that she did get relief after an ablation that was performed at a another pain management clinic. The pain did return in approximately 1 year. She did undergo a second ablation on the right side, however, she did not get any relief after that procedure. Patient is currently on code 7.5 mg 4 times a day. She says this is not givi
== END ==
PROVIDERS: PCP Emergency Medicine; Visit Provider Clinical Nurse Specialist Family Health
DX: M51.16 Intervertebral disc disorders with radiculopathy, lumbar region (principal); M47.894 Other spondylosis, thoracic region
CPT/HCPCS: 99202

== ENCOUNTER 2021-02-24 20:47 | Emergency (ER) | payer MEDICARE, SELFPAY ==
[2021-02-24 20:47] VITALS: BP 178/86; PULSE 78; RESP 16; TEMP 36.8; O2SAT 97; BMI 23.8
--- NOTE | 2021-02-24 21:08 | CT_ITS ---
PROCEDURE: CT ABDOMEN PELVIS W CON CLINICAL INDICATION: ablood in urine Hematuria, flank/low back pain COMPARISON: CT CT ABDOMEN PELVIS WO CON from 08/31/2019 TECHNIQUE: IV Contrast: 75ML Isovue 370 Oral Contrast None Axial images obtained with sagittal and coronal reformats. All CT scans at the facility use one or more dose reduction, viz: automated exposure control, ma/kV adjustment per patient size (including targeted exams where dose is matched to indication, i.e. head), or iterative reconstruction technique. FINDINGS: LOWER THORAX: There is a 9 mm nodule in the right middle lobe and 9 mm nodule lower lobe anteriorly unchanged. Atelectatic changes are present in the lung bases. ABDOMEN & PELVIS: Stable hypodense hepatic lesions which may be due to liver cyst. The largest is in the left hepatic lobe anteriorly at 19 mm. The spleen and adrenal glands are unremarkable. There is mild dilatation of the pancreatic duct in the region the pancreatic head measuring approximately 4 mm. Common bile duct measures approximately 6 mm. There is increased density within the pancreatic head posteriorly. This does not appear masslike and is of questionable significance. Overall slight decreased density of the body and tail the pancreas without induration of the peripancreatic fat. There are bilateral renal cortical cysts and mild prominence of the renal pelves on both sides. No ureteral or renal calculi are evident. No intestinal obstruction or free air. There is mild thickening of the transverse colon and splenic flexure. No evidence of appendicitis. There is colonic diverticulosis but no evidence of diverticulitis. Small bowel feces sign in the lower pelvic region without distension suggesting prolonged transit. No pelvic mass. Mildly distended urinary bladder. There are degenerative changes in the lower lumbar spine. Artifact is present from right hip prosthesis. IMPRESSION: 1. Possible colitis. 2. Small bowel feces sign in the lower pelvic region suggesting delayed transit. 3. Differential density in the pancreatic head. This is of questionable clinical significance. There is some minimal prominence of the pancreatic duct. Follow-up may confirm stability. 4. Extrarenal pelves not significantly changed. 5. Colonic diverticulosis without diverticulitis Dictated by: Jed Malloy MD 02/25/2021 08:17 Jed Malloy MD in [place] 02/25/2021 08:17
[2021-02-24 21:14] LABS: Microscopic, Urine URINE MICROSCOPIC (MICROSCOPIC)
[2021-02-24 21:27] LABS: Basophils # 0.1 K/mm3 (0-0.2); Basophils % 0.9 % (0.1-2.0); Eosinophils # 0.2 K/mm3 (0.0-0.4); Eosinophils % 2.2 % (0.1-12.0); Hematocrit 37.8 % (37.0-47.0); Hemoglobin 12.9 g/dL (12.2-16.2); Lymphocytes # 2.8 K/mm3 (0.7-4.5); Lymphocytes % 28.9 % (10-50); Mean Corpuscular HGB Conc 34.1 g/dL (31.8-35.4); Mean Corpuscular Hemoglobin 30.7 pg (27.0-31.2); Mean Corpuscular Volume 90.2 fl (81-99); Mean Platelet Volume 7.3 fl (7.4-10.4); Monocytes # 0.6 K/mm3 (0.1-1.0); Monocytes % 6.1 % (1.7-9.3); Platelet Count 253 K/mm3 (142-424); Red Blood Count 4.19 M/mm3 (4.20-5.40); Red Cell Distribution Width 13.4 % (11.5-17.5); White Blood Count 9.7 K/mm3 (4.8-10.8)
[2021-02-24 21:27] LABS: Appearance,Urine CLEAR (Clear); Bilirubin,Urine Negative (Negative); Blood, Urine 2+ (Negative); Color,Urine YELLOW (Yellow); Glucose,Urine (UA) Negative (Negative); Ketones,Urine Negative (Negative); Leukocyte Esterase,Urine Negative (Negative); Nitrate,Urine Negative (Negative); PH,Urine 6.5 (5.0-8.5); Protein,Urine Negative (Negative); Specific Gravity, Urine <= 1.005 (1.005-1.030); Urobilinogen,Urine 0.2 EU/dl (0.2)
[2021-02-24 21:30] VITALS: BP 175/96; PULSE 76; O2SAT 96
[2021-02-24 21:33] LABS: RBC,Urine 20-50 #/hpf (0-3); WBC,Urine Occasional #/hpf (0-3)
[2021-02-24 21:37] LABS: Alanine Aminotransferase 13 U/L (12-78); Albumin Level 4.2 g/dl (3.5-5.0); Albumin/Globulin Ratio 1.4 (1.1-1.8); Alkaline Phosphatase 119 U/L (38-126); Amylase 95 U/L (30-110); Anion Gap 11.9 mEq/L (5-15); Aspartate Amino Transferase 37 U/L (14-36); Bilirubin,Total 0.2 mg/dl (0.2-1.3); Blood Urea Nitrogen 11 mg/dl (7-17); Calcium 8.9 mg/dl (8.4-10.2); Carbon Dioxide 27 mmol/L (22.0-30.0); Chloride 96 mmol/L (98-107); Creatinine Clearance Estimated 38 mL/min (50-200); Estimated Glomerular Filt Rate 80 ml/min (>60); GFR (African American) 96 ML/MIN (>60); Globulin 2.9 g/dL (1.3-3.2); Glucose 95 mg/dl (74-100); Potassium 3.9 mmoL/L (3.5-5.1); Sodium 131 mmol/L (136-145); Total Protein,Serum 7.1 g/dl (6.3-8.2)
[2021-02-24 21:42] LABS: C-Reactive Protein 3.5 mg/L (0-4)
[2021-02-24 21:55] LABS: Procalcitonin 0.053 ng/mL (0.0-2.0)
[2021-02-24 21:56] LABS: Erythrocyte Sedimentation Rate 28 mm/hr (0-30)
[2021-02-24 22:04] LABS: Lipase 208 U/L (23-300)
--- NOTE | 2021-02-24 22:37 | HMH.EDUROGF ---
ED Disposition Clinical Impression: Hematuria Qualifiers: Hematuria type: unspecified type Qualified Code(s): R31.9 - Hematuria, unspecified Disposition: Home, Self-Care Condition on Discharge: Good Instructions: DI for Hematuria Additional Instructions: check urine culture results and consider urology eval Referrals: Abdulkadir Mcgill MD [Primary Care Provider] - Malik Vo MD [Staff Physician] - - Critical Care Critical Care Time: No Attestation: On 02/24/21, the high probability of a clinically significant, sudden or life threatening deterioration of the following system(s) required my full and direct attention, intervention and personal management. The time I documented below is in addition to time spent performing reported procedures but includes the following listed in this critical care notation. Medical Decision Making - Medical Records Medical records reviewed: Yes: I reviewed the patient's medical records. - James Inquiry Pt receiving controlled substance: No Vital Signs: 02/24/21 20:47 02/24/21 21:30 Temperature 98.3 F Temperature Source Oral Pulse Rate 76 Pulse Rate [Right] 78 Respiratory Rate 16 Blood Pressure 175/96 H Blood Pressure [Right Arm] 178/86 H Blood Pressure Mean 114 Blood Pressure Mean [Right Arm] 116 02 Sat by Pulse Oximetry 97 96 - Lab Data Lab results reviewed: Yes: I reviewed the patient's lab results. Lab Results 02/24/21 21:00: Urine Color Yellow, Urine Appearance Clear, Urine pH 6.5, Ur Specific [place] <= 1.005, Urine Protein Negative, Urine Glucose (UA) Negative, Urine Ketones Negative, Urine Blood 2+, Urine Nitrate Negative, Urine Bilirubin Negative, Urine Urobilinogen 0.2, Ur Leukocyte Esterase Negative, Urine RBC 20-50, Urine WBC Occasional, Ur Squamous Epith Cells None, Urine Bacteria None 02/24/21 21:16: WBC 9.7, RBC 4.19 L, Hgb 12.9, Hct 37.8, MCV 90.2, MCH 30.7, MCHC 34.1, RDW 13.4, Plt Count 253, MPV 7.3 L, Neut % (Auto) 62.0, Lymph % (Auto) 28.9, [place] % (Auto) 6.1, Eos % (Auto) 2.2, Baso % (Auto) 0.9, Neut # (Auto) 6.0, Lymph # (Auto) 2.8, [place] # (Auto) 0.6, Eos # (Auto) 0.2, Baso # (Auto) 0.1, ESR 28 02/24/21 21:16: Sodium 131 L, Potassium 3.9, Chloride 96 L, Carbon Dioxide 27, Anion Gap 11.9, BUN 11, Creatinine 0.70, Estimated Creat Clear 38, Estimated GFR 80, Est GFR ( Amer) 96, Glucose 95, Calcium 8.9, Total Bilirubin 0.2, AST 37 H, ALT 13, Alkaline Phosphatase 119, C-Reactive Protein 3.5, Total Protein 7.1, Albumin 4.2, Globulin 2.9, Albumin/Globulin Ratio 1.4, Amylase 95, Procalcitonin 0.053 02/24/21 21:16: Lipase 208 Result diagrams: 02/24/21 21:16 02/24/21 21:16 Orders (Tests/Meds): ED MEDICATIONS Generic Name Dose Route Start Last Admin Trade Name Freq PRN Reason Stop Dose Admin Sodium Chloride 1,000 mls @ 999 mls/hr 02/24/21 21:30 02/24/21 21:20 Sod Chlor 0.9% 1000ml Bag IV 02/24/21 22:30 999 mls/hr .Q1H1M PETRA Administration Discontinued Medications Generic Name Dose Route Start Last Admin Trade Name Freq PRN Reason Stop Dose Admin Iopamidol 75 ml 02/24/21 22:02 02/24/21 22:03 Iopamidol-370 (76%);100ml Bottle IV 02/24/21 22:03 75 ml ONCE ONE Administration Ketorolac Tromethamine 30 mg 02/24/21 22:21 02/24/21 22:22 Ketorolac 30mg/Ml Vial IV 02/24/21 22:22 30 mg ONCE ONE Administration Methylprednisolone Sodium Succinate 125 mg 02/24/21 22:21 02/24/21 22:22 Methylprednisolone Sod Succ 125mg Vial IV 02/24/21 22:22 125 mg ONCE ONE Administration Sodium Chloride 10 ml 02/24/21 22:02 02/24/21 22:02 Sodium Chloride 0.9% 10ml Syr (Rad Only) IV 02/24/21 22:03 10 ml ONCE ONE Administration ORDERS Category Date Time Status CT abdomen pelvis w con Stat Cat Scan 04/17/21 21:08 Taken Urine Culture Stat Micro 02/24/21 22:35 Ordered - CT Data CT Scan: Abdomen, Pelvis Time Received: 22:[address] Reviewed: Yes: I have viewed the radiologist's interpretation
[2021-02-24 23:04] VITALS: BP 169/74; PULSE 94; RESP 16; TEMP 36.8; O2SAT 97
== END 2021-02-24 23:06 | disposition home or self-care (01) ==
PROVIDERS: Emergency Provider Emergency Medicine; PCP Internal Medicine Adolescent Medicine
DX: R31.9 Hematuria, unspecified (principal); M54.5 Low back pain; E78.5 Hyperlipidemia, unspecified; F41.9 Anxiety disorder, unspecified; M81.0 Age-related osteoporosis without current pathological fracture; E03.9 Hypothyroidism, unspecified; R01.1 Cardiac murmur, unspecified; Z79.899 Other long term (current) drug therapy
CPT/HCPCS: 74177; 80053; 81001; 82150; 83690; 84145; 85025; 85651; 86140; 87086; 99283; Q9967

== ENCOUNTER → 2021-03-02 16:02 | Outpatient (CLI) | payer MEDICARE, SELFPAY ==
--- NOTE | 2021-03-02 16:17 | CT_ITS ---
PROCEDURE: CT LUMBAR SPINE WO CON CLINICAL HISTORY: LOW BACK PAIN COMPARISON: CT CT ABDOMEN PELVIS WO CON from 08/31/2019 TECHNIQUE: Axial images obtained with sagittal and coronal reformats. All CT scans at the facility use one or more dose reduction, viz: automated exposure control, ma/kV adjustment per patient size (including targeted exams where dose is matched to indication, i.e. head), or iterative reconstruction technique. FINDINGS: There is normal alignment. No acute fracture or dislocation is evident. No lytic or blastic change. L1-L2: Minimal bulging disc. L2-L3: Degenerative disc disease with bulging disc along facet and ligamentum hypertrophy causing mild bilateral lateral recess and foraminal narrowing. L3-L4: Severe degenerative disc disease with endplate sclerosis and subchondral cystic changes. There is 6 mm retrolisthesis of L3 on L4 with concentric bulging disc and facet and ligamentum hypertrophy with severe right foraminal narrowing and mild left foraminal narrowing. There has been prior laminectomy at L4. L4-5: Postsurgical changes with laminectomy at L4 and mild bulging disc at L4-5 with moderate bilateral foraminal narrowing. L5-S1: Bulging disc with facet and ligamentum hypertrophic change with bilateral lateral recess narrowing. Incidental note made of colonic diverticulosis. No evidence of diverticulitis. The gallbladder appears slightly distended. IMPRESSION: There is multilevel lumbar spondylosis as described above. Postsurgical changes are present at L4-5. Please see above for detailed description at each level. No acute fracture. Dictated by: Jed Malloy MD 03/03/2021 07:33 Jed Malloy MD in [place] 03/03/2021 07:33
== END ==
PROVIDERS: PCP Internal Medicine Adolescent Medicine; Visit Provider Internal Medicine Adolescent Medicine
DX: M54.5 Low back pain (principal)
CPT/HCPCS: 72131

== ENCOUNTER → 2021-03-29 14:12 | Outpatient (POV) | payer MEDICARE, SELFPAY ==
[2021-03-29 14:29] VITALS: BP 133/68; PULSE 74; RESP 18; O2SAT 98; BMI 22.1
--- NOTE | 2021-03-29 15:43 | HMH.PMCON ---
Assessment and Plan (1) Degenerative disc disease, thoracic Status: Chronic Category: Medical Code(s): M51.34 - Other intervertebral disc degeneration, thoracic region (2) Facet arthropathy, thoracic Status: Chronic Category: Medical Code(s): M47.814 - Spondylosis without myelopathy or radiculopathy, thoracic region (3) Thoracic spine pain Status: Chronic Category: Medical Code(s): M54.6 - Pain in thoracic spine - Assessment and plan all Dx Assessment and Plan for all problems:: We will schedule the patient for a T 78 T8-T9 bilateral medial branch block. Patient understands that this is diagnostic. She has had a RFA in the past. She may be a neurotomy candidate in the future. Patient and I discussed pain medication encourage her to take her stronger dose medication provided to her by her primary care physician. If she does not get relief from this I would recommend potentially Percocet versus a [place]. Patient is not on any anticoagulation therapy. We will set her up for her injection reassess her afterwards. She has been instructed to call the office if she has any issues prior to her next appointment. Dr. Mcclendon has reviewed this note and agrees with this plan of care. This note was dictated using voice recognition software and may contain errors or omissions HPI - Data of Consult Consult date: 03/29/21 Requesting Physician: Yara Barillas APRN Primary Care Provider: Abdulkadir Mcgill MD - Consult Narrative Reason for consult: Back pain History of present illness: Ms. Henderson is a 85 year old female who presents today for consultation regards to her back pain. She is very uncomfortable. She comes from an assisted living facility. She rates her pain a 5 out of 10. However she has difficulty sitting. Mostly in her mid back. She has notable scoliosis. She has had facet joint injections about 3 years ago and did extremely well with that and radiofrequency ablation. Patient states that all activity increases pain while nothing decreases pain. Patient has tried and failed physical therapy and medications. She is currently on [place]. Patient's not on any anticoagulation therapy. Patient is interested in injective therapy given the efficacy of this in the past. CC: Yara Barillas APRN [facility] History I have reviewed the patient's past medical history: Yes Medical History: Reports:: Anxiety, Hyperlipidemia, Osteoporosis Denies:: Cancer, Diabetes Mellitus Type 1, Diabetes Mellitus Type 2, MRSA *Have you ever received a pneumonia vaccine?: Yes *Have you received a flu vaccine this season?: Yes Other Medical History: Reports: Arthritis, Hypothyroidism, Osteoporosis, Thyroid Disease, Other (chronic pain ) Amputation: No - *Social History Smoking Status: Never smoker Tobacco Type: cigarettes Alcohol Intake: never *Occupational Status:: retired Housing: longterm Household Members: other *Travel in the last 8 weeks: None - Psychiatric History Pschychiatric History:: Reports:: Anxiety Family Hx:: Unable to obtain Review of Systems - Review of Systems ROS General: no recent weight change, no fever, no sleep disturbances Respiratory: no cough, no shortness of air, no recurring pulmonary infections Cardiovascular/Peripheral Vascular: No chest pain, No palpitations, no edema, no shortness of breath. Gastrointestinal: no new onset incontinence, normal bowel movements reported Genitourinary: no new onset incontinence Musculoskeletal: Back pain Psychiatric: normal mood/ affect Neurological: [denies new onset weakness in extremities], [denies new onset balance issues] Meds Home Medications Medication Instructions Recorded Confirmed Type baclofen 10 mg tablet 10 mg PO BIDP PRN 01/27/19 02/24/21 History docusate sodium 100 mg capsule 100 mg PO DAILY 01/27/19 02/24/21 History latanoprost 0.005 % eye drops 1 drp OPHTHALMIC QPM 01/27/19 02/24/21 History meloxicam 7.5 mg tablet 7.5
== END ==
PROVIDERS: PCP Internal Medicine Adolescent Medicine; Visit Provider Clinical Nurse Specialist Family Health
DX: M51.34 Other intervertebral disc degeneration, thoracic region (principal); M47.814 Spondylosis without myelopathy or radiculopathy, thoracic region
CPT/HCPCS: 99202; G0463

== ENCOUNTER 2021-04-06 11:06 | Day surgery (SDC) | payer MEDICARE, SELFPAY ==
[2021-04-06 11:52] VITALS: BP 173/92; BP 174/84; PULSE 75; PULSE 82; RESP 18; TEMP 36.6; O2SAT 96; BMI 23.0
[2021-04-06 13:38] VITALS: BP 175/87; PULSE 93; RESP 18; O2SAT 97
[2021-04-06 13:49] VITALS: BP 175/87; PULSE 86; RESP 18; O2SAT 97
--- NOTE | 2021-04-06 15:43 | P.PCN_ITS ---
- Procedure Date: 04/06/21 Time: 15:43 Anesthesiologist:: Marjan Linton MD Complications:: None Pre-procedure Diagnosis:: degenerative disc disease thoracic spine, thoracic facet arthropathy Post-procedure Diagnosis:: Same Indications for Procedure:: Ms. Henderson is a very pleasant 85-year-old female who presents today with mid back pain. She has notable scoliosis and reports extreme difficulty with sitting. The pain is worse with all activities and she denies any alleviating factors. She has previously trialed physical therapy as well as medications without any relief in her pain symptoms. She is currently on [place]. Currently lives in assisted living facility. Exam includes patient on extension of the thoracic spine somewhat guarded secondary to pain. Tenderness to palpation over the thoracic facet joints. Motor strength is grossly intact in upper and lower extremities. Normal gait is appreciated. And is for her to undergo thoracic medial branch blocks at T7-T8 and T8-9 today. Procedure Details:: Thoracic medial branch block injections Informed consent was obtained and the risk and benefits of the procedure was explained to the patient. The patient was into the procedure room and placed prone on the procedure table. The mid back was prepped using ChloraPrep. C-arm fluoroscopy was used to view the cervical spine. The skin and subcutaneous tissues were anesthetized lidocaine. I placed 22-gauge spinal needles into the facet joints of T7-T8, T8-T9 bilaterally. Needle placement was confirmed with dye. After this I injected 1 mL lidocaine 1.5% and Depo-Medrol 13 mg into each facet joint/medial branch of T7-T8, T8-T9 bilaterally. We used a total of 80 mg of Medrol for all 2 levels bilaterally. Patient tolerated the procedure well with no complications. Plan and Disposition:: Follow-up in 2 weeks. Will reevaluate patient symptoms at that time
== END 2021-04-06 14:10 | disposition home or self-care (01) ==
LOC: SC.PAINP 11:06
PROVIDERS: PCP Internal Medicine Adolescent Medicine; Visit Provider Anesthesiology Pain Medicine
DX: M51.34 Other intervertebral disc degeneration, thoracic region (principal); M54.04 Panniculitis affecting regions of neck and back, thoracic region; E78.5 Hyperlipidemia, unspecified; M19.90 Unspecified osteoarthritis, unspecified site; M81.0 Age-related osteoporosis without current pathological fracture; F41.9 Anxiety disorder, unspecified; E07.9 Disorder of thyroid, unspecified; F32.9 Major depressive disorder, single episode, unspecified
CPT/HCPCS: 64490; 64491; J1030; Q9966

== ENCOUNTER → 2021-05-03 11:44 | Outpatient (POV) | payer MEDICARE, SELFPAY ==
[2021-05-03 12:07] VITALS: BP 145/74; PULSE 90; RESP 18; O2SAT 96; BMI 22.1
--- NOTE | 2021-05-03 13:07 | P.CONS_ITS ---
[facility] Pain Management SOAP Note Subjective:: Patient is an 86-year-old white female who presents today for follow-up after thoracic medial branch block injections. She did undergo medial branch blocks of T7-T8 and T8-T9 levels. Her pain is a 6 out of 10 with movement, however, she says overall she feels much better. Her pain was previously 10 out of 10. She is doing much better since the injections. Patient does not want to proceed with a second medial branch block. She does understand that these injections are diagnostic and if her pain returns we would need to repeat the injections for possible RFA. This was her initial injection of medial branch blocks. For now she would like to wait to see if her pain returns. Review of Systems General: No recent weight changes, no fever, no sleep disturbances Respiratory: No cough, no shortness of air, no recurring pulmonary infections Cardiovascular/peripheral vascular: No chest pain, no palpitations, no edema, no shortness of breath Gastrointestinal: No new onset incontinence, normal bowel movements reported Genitourinary: No new onset incontinence Musculoskeletal: Mid back pain with movement Psychiatric: Normal mood/affect Neurological: [Denies weakness in extremities], [denies balance issues] Objective:: Physical exam General: Alert and oriented x3, no acute distress, pleasant and cooperative, [on room air] Lungs: Respirations even and unlabored, symmetrical chest expansion Eyes: PERRL Musculoskeletal: Flexion and extension of [] thoracic spine somewhat guarded secondary to pain, deep tendon reflexes normal, strength in upper and lower extremities [5/5], [abnormal gait noted] Neurological: 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 This injection was diagnostic and was her first injection. She has been advised if her patient is scheduled for 3-month follow-up but can return to the clinic before that time if her pain returns. Patient has been instructed to contact the clinic with any concerns before the next appointment. Dr. Mcclendon has reviewed this note and agrees with this plan of care. This note was dictated using voice recognition software and make contain errors or omissions. [facility] History I have reviewed the patient's past medical history: Yes Medical History: Reports:: Anxiety, Hyperlipidemia, Osteoporosis Denies:: Cancer, Diabetes Mellitus Type 1, Diabetes Mellitus Type 2, Internal Pacemaker, MRSA, Seizures *Have you ever received a pneumonia vaccine?: Yes *Have you received a flu vaccine this season?: Yes Other Medical History: Reports: Arthritis, Hypothyroidism, Osteoporosis, Thyroid Disease, Other (chronic pain ) Other Surgeries: No: Pacemaker Amputation: No - *Social History Smoking Status: Never smoker Tobacco Type: cigarettes Alcohol Intake: never *Occupational Status:: unemployed Housing: house Household Members: other *Travel in the last 8 weeks: None - Psychiatric History Pschychiatric History:: Reports:: Anxiety Family Hx:: Unable to obtain
== END ==
PROVIDERS: PCP Internal Medicine Adolescent Medicine; Visit Provider Clinical Nurse Specialist Family Health
DX: M51.14 Intervertebral disc disorders with radiculopathy, thoracic region (principal); M54.04 Panniculitis affecting regions of neck and back, thoracic region
CPT/HCPCS: 99212; G0463

== ENCOUNTER → 2021-08-02 10:55 | Outpatient (POV) | payer MEDICARE, SELFPAY ==
[2021-08-02 11:17] VITALS: BP 156/79; PULSE 80; RESP 18; O2SAT 95; BMI 22.1
--- NOTE | 2021-08-02 11:23 | P.CONS_ITS ---
[facility] Pain Management SOAP Note Subjective:: Patient is an 86-year-old white female who presents today for follow-up. The patient has been treated in the clinic for degenerative disc disease thoracic spine with thoracic facet arthropathy. The patient is continue to get relief following medial branch block/facet joint injections at T7-T8 T8-T9 area. Patient's pain is a 2 out of 10 today. She says she is still functioning well since the injections. She does not want to proceed with RFA at this time. Review of Systems General: No recent weight changes, no fever, no sleep disturbances Respiratory: No cough, no shortness of air, no recurring pulmonary infections Cardiovascular/peripheral vascular: No chest pain, no palpitations, no edema, no shortness of breath Gastrointestinal: No new onset incontinence, normal bowel movements reported Genitourinary: No new onset incontinence Musculoskeletal: Intermittent pain low back area with bending forward Psychiatric: [Normal mood/affect] Neurological: [Denies weakness in extremities], [denies balance issues] Objective:: Physical exam General: Alert and oriented x3, no acute distress, pleasant and cooperative, [on room air] Lungs: Respirations even and unlabored, symmetrical chest expansion Eyes: PERRL Musculoskeletal: Flexion and extension of [] thoracic [spine] somewhat guarded secondary to pain, strength in upper and lower extremities [5/5], [antalgic gait noted] Neurological: Speech clear, [head of maintenance equal], no gross sensory deficit Assessment:: Degenerative disc disease thoracic spine with thoracic facet arthropathy Plan:: Patient is doing well overall at this time. She has been advised if her pain does return she can contact the clinic for telehealth visit. Due to the patient's age, we will follow-up with telehealth to prevent the patient from exposure to Covid. If the patient's pain does return, she will need to undergo RFA at the T7-T8 T8-T9 levels bilaterally. Patient has been instructed to contact the clinic with any concerns before the next appointment. Dr. Mcclendon has reviewed this note and agrees with this plan of care. This note was dictated using voice recognition software and make contain errors or omissions. [facility] History I have reviewed the patient's past medical history: Yes Medical History: Reports:: Anxiety, Hyperlipidemia, Osteoporosis Denies:: Cancer, Diabetes Mellitus Type 1, Diabetes Mellitus Type 2, Internal Pacemaker, MRSA, Seizures *Have you ever received a pneumonia vaccine?: Yes *Have you received a flu vaccine this season?: No Other Medical History: Reports: Arthritis, Hypothyroidism, Osteoporosis, Thyroid Disease, Other (chronic pain ) Other Surgeries: No: Pacemaker Amputation: No - *Social History Smoking Status: Never smoker Tobacco Type: cigarettes Alcohol Intake: never *Occupational Status:: unemployed Housing: house Household Members: other *Travel in the last 8 weeks: None - Psychiatric History Pschychiatric History:: Reports:: Anxiety Family Hx:: Unable to obtain
== END ==
PROVIDERS: Visit Provider Clinical Nurse Specialist Family Health
DX: M51.34 Other intervertebral disc degeneration, thoracic region (principal); M54.04 Panniculitis affecting regions of neck and back, thoracic region
CPT/HCPCS: 99212; G0463

== ENCOUNTER 2022-01-01 15:58 | Observation (INO) | payer MEDICARE, SELFPAY ==
[2022-01-01 15:41] VITALS: BP 160/118; PULSE 78; RESP 18; TEMP 36.7; O2SAT 100; BMI 20.5
[2022-01-01 15:43] VITALS: BMI 22.7
--- NOTE | 2022-01-01 15:43 | CT_ITS ---
FINAL REPORT TECHNIQUE: Axial images of the head were obtained without contrast. Coronal reformatted images were also obtained. This study was performed with techniques to keep radiation doses as low as reasonably achievable (ALARA). Individualized dose reduction techniques using automated exposure control or adjustment of mA and/or kV according to the patient's size were employed. CLINICAL HISTORY: stroke FINDINGS: This exam was previously submitted under an incorrect accession number. Exam is significantly degraded by patient motion. The head is asymmetrically positioned in the gantry. There is moderate atrophy with proportional ventriculomegaly. There is extensive decreased attenuation in the deep white matter, probably due to chronic microvascular ischemia. There is no definite evidence of acute hemorrhage, mass effect, or edema. There is a density in the medial left ocular lens measuring 2 mm that may be due to prior surgical intervention. Correlate with history. IMPRESSION: Atrophy and periventricular chronic ischemic changes. Density in the medial left ocular lens may be due to prior surgical intervention. Correlate with history. Reviewed, Interpreted and Dictated by Nelson Manjarrez MD Transcribed by Raiza Johnson Authenticated by Nelson Manjarrze MD on 01/03/2022 09:44:46 AM [facility]
[2022-01-01 16:09] LABS: POC Glucose,Bedside 100 (70-110)
[2022-01-01 16:21] LABS: Alanine Aminotransferase 17 U/L (12-78); Albumin Level 4.1 g/dl (3.5-5.0); Albumin/Globulin Ratio 1.5 (1.1-1.8); Alkaline Phosphatase 115 U/L (38-126); Aspartate Amino Transferase 40 U/L (14-36); Bilirubin,Total 0.3 mg/dl (0.2-1.3); Blood Urea Nitrogen 14 mg/dl (7-17); Calcium 8.3 mg/dl (8.4-10.2); Carbon Dioxide 30 mmol/L (22.0-30.0); Chloride 100 mmol/L (98-107); Creatinine Clearance Estimated 42 mL/min (50-200); Estimated Glomerular Filt Rate 79 ml/min (>60); GFR (African American) 96 ML/MIN (>60); Globulin 2.8 g/dL (1.3-3.2); Glucose 109 mg/dl (74-100); Sodium 136 mmol/L (136-145); Total Protein,Serum 6.9 g/dl (6.3-8.2)
[2022-01-01 16:30] LABS: Basophils # 0.1 K/mm3 (0-0.2); Eosinophils # 0.2 K/mm3 (0.0-0.4); Eosinophils % 1.7 % (0.1-12.0); Hematocrit 38.5 % (37.0-47.0); Hemoglobin 12.7 g/dL (12.2-16.2); Lymphocytes # 2.3 K/mm3 (0.7-4.5); Lymphocytes % 24.9 % (10-50); Mean Corpuscular Hemoglobin 31.7 pg (27.0-31.2); Mean Corpuscular Volume 96.1 fl (81-99); Monocytes # 0.5 K/mm3 (0.1-1.0); Monocytes % 5.3 % (1.7-9.3); Neutrophils # 6.2 K/mm3 (1.8-7.8); Neutrophils % 67.1 % (37.0-80.0); Platelet Count 272 K/mm3 (142-424); Red Blood Count 4.01 M/mm3 (4.20-5.40); Red Cell Distribution Width 13.8 % (11.5-17.5); White Blood Count 9.3 K/mm3 (4.8-10.8)
--- NOTE | 2022-01-01 16:42 | HMH.EDAMS ---
ED Disposition Clinical Impression: Delirium due to general medical condition, Confusion Disposition: Admitted As Inpatient Condition on Discharge: Fair Instructions: DI for Altered Mental Status Referrals: Provider,Referral, MD [Primary Care Provider] - - Critical Care Critical Care Time: No Attestation: On 01/01/22, the high probability of a clinically significant, sudden or life threatening deterioration of the following system(s) required my full and direct attention, intervention and personal management. The time I documented below is in addition to time spent performing reported procedures but includes the following listed in this critical care notation. Medical Decision Making - Medical Records Medical records reviewed: Yes: I reviewed the patient's medical records. - James Inquiry Pt receiving controlled substance: Yes James was queried for this patient: No Reason not queried -: Emergent pt cond-no time Risks and benefits of using a controlled substance: were discussed with pt by me Vital Signs: 01/01/22 15:41 Temperature 98.1 F Temperature Source Oral Pulse Rate [Left Radial] 78 Respiratory Rate 18 Blood Pressure [Right Arm] 160/118 H Blood Pressure Mean [Right Arm] 132 Blood Pressure Source [Right Arm] Automatic Cuff Blood Pressure Position [Right Arm] Sitting 02 Sat by Pulse Oximetry 100 Oxygen Delivery Method Room Air - Lab Data Lab Results 01/01/22 15:59: POC Glucose 100 01/01/22 16:03: WBC 9.3, RBC 4.01 L, Hgb 12.7, Hct 38.5, MCV 96.1, MCH 31.7 H, MCHC 33.0, RDW 13.8, Plt Count 272, MPV 8.0, Neut % (Auto) 67.1, Lymph % (Auto) 24.9, [place] % (Auto) 5.3, Eos % (Auto) 1.7, Baso % (Auto) 1.0, Neut # (Auto) 6.2, Lymph # (Auto) 2.3, [place] # (Auto) 0.5, Eos # (Auto) 0.2, Baso # (Auto) 0.1 01/01/22 16:03: Sodium 136, Potassium 4.0, Chloride 100, Carbon Dioxide 30, Anion Gap 10.0, BUN 14, Creatinine 0.70, Estimated Creat Clear 42, Estimated GFR 79, Est GFR ( Amer) 96, Glucose 109 H, Calcium 8.3 L, Total Bilirubin 0.3, AST 40 H, ALT 17, Alkaline Phosphatase 115, Total Protein 6.9, Albumin 4.1, Globulin 2.8, Albumin/Globulin Ratio 1.5 01/01/22 16:30: Troponin I < 0.01 01/01/22 16:30: Urine Opiates Screen Positive H, Urine Methadone Screen Negative, Ur Barbituates Screen Negative, Ur Phencyclidine Scrn Negative, Ur Amphetamines Screen Negative, U Benzodiazepines Scrn Negative, Urine Cocaine Screen Negative, U Marijuana (THC) Screen Negative 01/01/22 17:30: Urine Color Yellow, Urine Appearance Clear, Urine pH 7.5, Ur Specific [place] 1.015, Urine Protein Negative, Urine Glucose (UA) Negative, Urine Ketones Negative, Urine Blood 1+, Urine Nitrate Negative, Urine Bilirubin Negative, Urine Urobilinogen 0.2, Ur Leukocyte Esterase Negative, Urine RBC 5-10, Urine WBC Occasional, Ur Squamous Epith Cells Occasional, Urine Bacteria 2+ 01/01/22 18:30: Ammonia < 9 L Result diagrams: 01/01/22 16:03 01/01/22 16:03 Orders (Tests/Meds): ED MEDICATIONS Discontinued Medications Generic Name Dose Route Start Last Admin Trade Name Freq PRN Reason Stop Dose Admin Morphine Sulfate 4 mg 01/01/22 16:00 01/01/22 16:00 Morphine 4mg/Ml Syringe IV 01/01/22 16:01 4 mg ONCE ONE Administration Ondansetron HCl 4 mg 01/01/22 18:18 01/01/22 18:20 Ondansetron 4mg/2ml Vial IV 01/01/22 18:19 4 mg ONCE ONE Administration Ondansetron HCl 4 mg 01/01/22 16:00 01/01/22 16:00 Ondansetron 4mg/2ml Vial IV 01/01/22 16:01 4 mg ONCE ONE Administration ORDERS Category Date Time Status CT head/brain wo con Stat Cat Scan 01/01/22 15:43 Taken Rapid PCR Covid and Flu A/B Stat Lab 01/01/22 18:35 Received TSH [Thyroid Stimulating Hormone] Stat Lab 01/01/22 16:30 Results Trop I [Troponin I] Stat Lab 01/01/22 16:30 Results Troponin I Q3H Lab 01/01/22 21:30 Ordered Troponin I Q3H Lab 01/02/22 00:30 Ordered Urine Culture Stat Micro 01/01/22 17:30 Received - CT Data CT Scan: Head Ti
[2022-01-01 17:32] LABS: Microscopic, Urine URINE MICROSCOPIC (MICROSCOPIC)
[2022-01-01 17:39] LABS: Appearance,Urine CLEAR (Clear); Bilirubin,Urine Negative (Negative); Blood, Urine 1+ (Negative); Color,Urine YELLOW (Yellow); Glucose,Urine (UA) Negative (Negative); Ketones,Urine Negative (Negative); Leukocyte Esterase,Urine Negative (Negative); Nitrate,Urine Negative (Negative); PH,Urine 7.5 (5.0-8.5); Protein,Urine Negative (Negative); Specific Gravity, Urine 1.015 (1.005-1.030); Urobilinogen,Urine 0.2 EU/dl (0.2)
--- NOTE | 2022-01-01 17:40 | PC.NURSE ---
per dagmar in radiology unsure as to why report for CT head has not crossed over into our system but she has printed and faxed down a report for us.
--- NOTE | 2022-01-01 17:48 | PC.NURSE ---
ER at speaking with pt family
[2022-01-01 18:03] LABS: Bacteria,Urine 2+ /lpf; Squamous Epithelial Cell,Urine Occasional #/hpf (0-5); WBC,Urine Occasional #/hpf (0-3)
--- NOTE | 2022-01-01 18:30 | PC.NURSE ---
Lab at bedside; along with family
[2022-01-01 18:37] LABS: Amphetamine/Metha Screen,Urine Negative ng/ml (<1000); Benzodiazepines Screen,Urine Negative ng/ml (<200)
[2022-01-01 18:38] LABS: Barbiturates Screen,Urine Negative ng/ml (<200)
[2022-01-01 18:39] LABS: Cannabinoid Screen,Urine Negative ng/ml (<50); Cocaine Screen,Urine Negative ng/ml (<300)
[2022-01-01 18:40] LABS: Methadone Screen,Urine Negative ng/ml (<300); Opiate Screen,Urine Positive ng/ml (<300)
[2022-01-01 18:41] LABS: Phencyclidine Screen,Urine Negative ng/ml (<25)
[2022-01-01 18:43] LABS: Coronavirus 19, PCR Not Detected (NotDetected); Influenza A, PCR Not Detected (NotDetected); Influenza B, PCR Not Detected (NotDetected)
--- NOTE | 2022-01-01 18:50 | PC.NURSE ---
calling doctor control clerk auditing for
[2022-01-01 18:56] LABS: Ammonia < 9 umol/L (9-30)
[2022-01-01 18:57] LABS: Troponin I < 0.01 ng/ml (0.00-0.034)
[2022-01-01 19:09] LABS: Thyroid Stimulating Hormone 2.96 uIU/mL (0.465-4.68)
[2022-01-01 19:22] VITALS: BP 171/93; PULSE 109; O2SAT 90
[2022-01-01 19:39] VITALS: BP 178/81; PULSE 90; RESP 18; TEMP 36.7; O2SAT 93
[2022-01-01 20:04] VITALS: BP 157/78; PULSE 109; RESP 18; TEMP 38.1; O2SAT 91; BMI 19.7
--- NOTE | 2022-01-01 20:13 | PC.NURSE ---
PT ARRIVED TO FLOOR VIA W/C FROM ED W/STAFF @ 2012
[2022-01-01 20:59] VITALS: PULSE 110
[2022-01-01 22:10] LABS: Troponin I 0.02 ng/ml (0.00-0.034)
[2022-01-02] VITALS: BP 136/94; PULSE 112; PULSE 120; RESP 18; TEMP 37.7; O2SAT 92
[2022-01-02 00:51] LABS: Troponin I 0.04 ng/ml (0.00-0.034)
--- NOTE | 2022-01-02 02:24 | PC.NURSE ---
Addendum entered by Ligia Lee RN 01/02/22 05:35: Unable to obtain 0400am strip due to patient pulling off leads. Original Note: Patient unable to answer admission questions at this time due to altered mental status.
--- NOTE | 2022-01-02 04:20 | PC.NURSE ---
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
[2022-01-02 04:32] VITALS: BP 125/58; PULSE 95; RESP 18; TEMP 36.9; O2SAT 94
[2022-01-02 05:04] VITALS: BMI 19.7
--- NOTE | 2022-01-02 06:07 | PC.NURSE ---
Have attempted to call POA multiple times this shift due to patients code status. No answer at this time.
[2022-01-02 06:52] LABS: Basophils # 0.1 K/mm3 (0-0.2); Basophils % 0.6 % (0.1-2.0); Eosinophils # 0.1 K/mm3 (0.0-0.4); Eosinophils % 0.4 % (0.1-12.0); Hematocrit 37.3 % (37.0-47.0); Hemoglobin 12.2 g/dL (12.2-16.2); Mean Corpuscular HGB Conc 32.7 g/dL (31.8-35.4); Mean Corpuscular Hemoglobin 31.3 pg (27.0-31.2); Mean Corpuscular Volume 95.6 fl (81-99); Mean Platelet Volume 8.4 fl (7.4-10.4); Monocytes % 7.8 % (1.7-9.3); Neutrophils # 8.9 K/mm3 (1.8-7.8); Neutrophils % 68.1 % (37.0-80.0); Platelet Count 272 K/mm3 (142-424); Red Cell Distribution Width 13.6 % (11.5-17.5); White Blood Count 13.1 K/mm3 (4.8-10.8)
[2022-01-02 06:53] LABS: Chloride 94 mmol/L (98-107); Potassium 3.6 mmoL/L (3.5-5.1); Sodium 131 mmol/L (136-145)
[2022-01-02 06:56] LABS: Anion Gap 8.6 mEq/L (5-15); Blood Urea Nitrogen 10 mg/dl (7-17); Calcium 7.8 mg/dl (8.4-10.2); Carbon Dioxide 32 mmol/L (22.0-30.0); Creatinine Clearance Estimated 36 mL/min (50-200); Estimated Glomerular Filt Rate 79 ml/min (>60); GFR (African American) 96 ML/MIN (>60); Glucose 83 mg/dl (74-100)
--- NOTE | 2022-01-02 07:11 | HMH.PHAVTE ---
[facility] Pharmacy VTE Monitoring - Patient Demographics Admission date: 01/02/22 Report Date: 01/02/22 Time: 07:11 Allergies/Adverse Reactions: Patient Allergies No Known Allergies Allergy (Verified 04/06/21 12:38) Height: 1.7 m Weight: 57.017 kg Patient Problems: Current Active Problems Confusion (Acute) Delirium due to general medical condition (Acute) - VTE Risk Labs: VTE Related Lab Results Hgb 12.2 g/dL (12.2-16.2) 01/02/22 05:33 Hct 37.3 % (37.0-47.0) 01/02/22 05:33 Plt Count 272 K/mm3 (142-424) 01/02/22 05:33 BUN 10 mg/dl (7-17) D 01/02/22 05:33 Creatinine 0.70 mg/dl (0.52-1.04) 01/02/22 05:33 Estimated Creat Clear 36 mL/min (50-200) 01/02/22 05:33 Was VTE Risk Assessment Performed: Yes VTE Risk Level: Low Risk Clinical Trial Participant: No - Prophylaxis VTE Prophylaxis Ordered?: Yes Types of VTE Prophylaxis: TEDS Knee High, Pharmacological Location of Applied Device: Bilateral Lower Extremeties Pharmacologic Type: Enoxaparin
--- NOTE | 2022-01-02 07:45 | HMH.PHAINT ---
Home med rec complete
[2022-01-02 08:00] VITALS: BP 142/94; PULSE 91; RESP 16; TEMP 37; O2SAT 93
--- NOTE | 2022-01-02 08:30 | SW/DCPLANNER ---
Addendum entered by [facility] 01/07/22 07:44: Per Taryn costa/ [facility] patients [facility] denied SNF level of care for this patient. I did notify Dr Jones and patients son (Mike) Friday evening 01/04/22 regarding situation. Patient discharged back to Personal Care on Friday01/05/22: MD and family agreeable with plan. Addendum entered by [facility] 01/04/22 14:54: If patient is approved by insurance for tomorrow or tomorrow 01/05/22 then patient will NOT require a COVID swab. Addendum entered by [facility] 01/04/22 09:51: The plan is for this patient to return to [facility] level of care once prior auth is received. I am waiting to hear back from [facility] regarding auth. Due to patient having a COVID swab on 01/01 an additional swab is not needed prior to discharge per Taryn. Addendum entered by [facility] 01/03/22 13:26: Updated information has been faxed to Cyndi at [facility]. Cyndi stated that she would have a skilled be available at time of discharge. Original Note: This patient currently resides at [facility]. I spoke with Cyndi from [facility]: patient is on Personal Care side and is followed by Dr Mcgill. I will continue to follow up with Ender Yates and . Discharge date is unknown at this time.
--- NOTE | 2022-01-02 08:36 | HMH.HP ---
*Admission Date: 01/02/22 *Chief complaint: Mental status changes *History of present illness: 86-year-old female has been a resident of a local personal care apartment living situation over the past couple of years who struggles with anxiety, chronic pain issues and some paranoia with ongoing mild dementia. She has been in a stable state over the past year or so, however has had increased pain over the past 4 to 6 weeks. We bumped up her gabapentin dose from nightly to twice daily and then 3 times daily about 3 to 4 weeks ago but she had increased somnolence and so the dose was back down to her normal nightly dose about 2 weeks ago. Nurses called us yesterday afternoon stating patient was confused, picking at environmental objects, agitated and withdrawing from care and they were worried about a stroke. We had her sent to the local emergency department for evaluation. Evaluation revealed essentially negative CT scan of head findings although final report is not available. Labs were essentially unremarkable but she was significantly altered from her baseline according to nursing staff and family members and was kept overnight for observation. [facility] History I have reviewed the patient's past medical history: Yes Medical History: Reports:: Anxiety, Hyperlipidemia, Osteoporosis Denies:: Cancer, Diabetes Mellitus Type 1, Diabetes Mellitus Type 2, Internal Pacemaker, MRSA, Seizures *Have you ever received a pneumonia vaccine?: Yes *Have you received a flu vaccine this season?: Yes Other Medical History: Reports: Arthritis, Hypothyroidism, Osteoporosis, Thyroid Disease, Other (chronic pain ) Other Surgeries: No: Pacemaker Amputation: No - *Social History Smoking Status: Never smoker Tobacco Type: cigarettes Alcohol Intake: never *Occupational Status:: disabled Housing: house Household Members: other *Travel in the last 8 weeks: None - Psychiatric History Pschychiatric History:: Reports:: Anxiety Family Hx:: Hyperlipidemia Review of Systems - Review of Systems Review of systems:: unable to obtain - *Neurologic Reports confusion, Reports headache(s) Meds Home Medications Medication Instructions Recorded Confirmed Type baclofen 10 mg tablet 10 mg PO TID PRN 01/27/19 01/02/22 History docusate sodium 100 mg capsule 100 mg PO DAILY 01/27/19 01/01/22 History latanoprost 0.005 % eye drops 1 drp OPHTHALMIC QPM 01/27/19 01/01/22 History meloxicam 7.5 mg tablet 7.5 mg PO DAILY 01/27/19 01/02/22 History Polyvinyl Alcohol/Povidone 1 drp EYE-BOTH Q1H 03/17/19 01/01/22 History [Artificial Tears Drops] polyethylene glycoL 3350 [Miralax 17 gm PO DAILYP PRN 03/17/19 01/01/22 History Powder] levothyroxine 88 mcg capsule 88 mcg PO DAILY 05/27/19 01/02/22 History Ibuprofen [Ibuprofen 600mg 600 mg PO BID 04/15/20 01/01/22 History Tablet] Ascorbate Calcium [Vitamin C] 500 mg PO QID 02/24/21 01/01/22 History Duloxetine HCl [Cymbalta] 20 mg PO HS 02/24/21 01/02/22 History Fluticasone Propionate [Flonase 1 spr NS DAILY 02/24/21 01/01/22 History 50mcg nasal spray 16gm] Gabapentin 300 mg PO QHS 02/24/21 01/01/22 History Glucosa Bucio 2Kcl/Chondroitin Bucio 2 each PO TID 02/24/21 01/01/22 History [Glucosamine & Chondroitin Cap] Hydrocodone/Acetaminophen 1 tab PO QID 02/24/21 01/02/22 History [Hydrocodone-Acetamin 7.5-325] Loratadine [Claritin] 10 mg PO DAILY 02/24/21 01/01/22 History ondansetron HCL [Ondansetron 4mg 4 mg PO Q8 PRN 02/24/21 01/01/22 History tab*] lorazepam 0.5 mg tablet 0.25 mg PO BID #30 tab 03/26/21 01/02/22 Rx Acetaminophen [Acetaminophen Extra 500 mg PO Q6H PRN 01/02/22 01/02/22 History Strength] Diclofenac Sodium [Diclofenac Sod 1 g TOPICAL TID 01/02/22 01/02/22 History 100gm Topical Gel] Docosanol [Abreva] 1 g TOPICAL DAILY PRN 01/02/22 01/02/22 History Multivitamin 1 tab PO DAILY 01/02/22 01/02/22 History Vits A and D/White Pet/Lanolin [A 1 g TOPICAL BID 01/02/22 01/02/22 History and D Ointment]
--- NOTE | 2022-01-02 08:40 | MR_ITS ---
FINAL REPORT CLINICAL HISTORY: MS CHANGES, BEST IMAGES POSSIBLE PT WAS GIVEN ATIVAN TO CALM HER DOWN SHE WAS STLL VERY AGITATED. DR BURKS INFORMED OF NON DIAGNOSTIC IMAGES AND UNCOOPERATIVENESS. HE STATED THAT WAS FINE JUST TO SEND WHAT WE GOT. FINDINGS: Multi planar MR imaging was obtained through the brain without contrast. Markedly compromised due to patient motion. Exam is marginally interpretable. There may be some mild increased signal in the deep white matter bilaterally. There is no restricted diffusion. The paranasal sinuses demonstrate mild changes of chronic left maxillary sinusitis. IMPRESSION: No definite evidence of acute ischemia. Reviewed, Interpreted and Dictated by Nelson Manjarrez MD Transcribed by Raiza Johnson Authenticated by Nelson Manjarrez MD on 01/02/2022 12:42:29 PM [facility]
--- NOTE | 2022-01-02 09:29 | CA_ITS ---
APPROVED REPORT EXAM: Comprehensive 2D, Doppler, and color-flow Echocardiogram Contour Grinder: Nadeen Al, RT(R) Ht: 5 ft 7 in Wt: 125lbs BSA: 1.66 BP: 125/58 mmHg Indications: Acute delirium, patient is combative and refuses to remove covers. She pulled her EKG leads off multiple times. Her RN assisted me in achieving a few echo images. Very limited study with limited EKG. AMS, elevated troponins, hyperlipidemia. M-Mode Dimensions RVDd 1.97 cm (0.9-2.6) LA Diam 4.13 cm (1.9-4.0) LVDd 4.79 cm (3.5-5.7) Ao Diam 3.16 cm (2.0-3.7) LVDs 3.79 cm (3.5-5.7) IVSd 0.72 cm (0.6-1.1) PWd 0.86 cm (0.6-1.1) EF (Teich) 42.40% FS 20.90% EDV (Teich) 107.00 mL ESV (Teich) 61.60 mL LV Diastology E Decel Time 150.00 (160-240 msec) E/A Ratio 0.6 Mitral Valve MV E Max Kahlil. 70.00 (40-130 cm/s) MV A Velocity 118.00 (40-130 cm/s) E/A Ratio 0.59 MV Decel. Time 150.00 (160-240 ms) MV PHT 44.00 ms Left Ventricle Left atrium is mildly enlarged, left ventricle is normal size, mild concentric left ventricular hypertrophy, visually estimated ejection fraction 55% with no regional wall motion abnormality, Doppler evidence of impaired LV relaxation. Right Ventricle Right atrium and right ventricle are normal size and contractility. Aortic Valve Aortic valve is minimally thickened and fibrosed without aortic stenosis or aortic insufficiency. Mitral Valve Mitral valve leaflets are minimally thickened, there is mild mitral regurgitation. Tricuspid Valve Tricuspid grossly normal, there is trace tricuspid regurgitation. Pulmonic Valve Pulmonic valve is poorly visualized. Great Vessels Aortic root is normal size. Inferior vena cava is poorly visualized. Pericardium No significant pericardial effusion noted. Conclusion 1. Normal left ventricular size, mild concentric left ventricular hypertrophy, visually estimated ejection fraction 55% with no regional wall motion abnormality, Doppler evidence of impaired LV relaxation seen. 2. Mild mitral and trace tricuspid regurgitation. 3. No significant pericardial effusion noted. 4. Inferior vena cava is poorly visualized. Electronically signed by : Simon Bustamante MD 01/02/2022 19:41:31
[2022-01-02 10:31] LABS: Vitamin B12 998 pg/mL (239-931)
[2022-01-02 13:00] VITALS: BP 143/74; PULSE 100; RESP 24; TEMP 37.5; O2SAT 92
[2022-01-02 16:00] VITALS: BP 128/60; PULSE 94; RESP 18; TEMP 36.9; O2SAT 90
[2022-01-02 20:00] VITALS: BP 131/77; PULSE 93; RESP 18; TEMP 36.9; O2SAT 98
[2022-01-03] VITALS: BP 142/64; PULSE 69; RESP 17; TEMP 37; O2SAT 90
[2022-01-03 04:00] VITALS: BP 131/70; PULSE 83; RESP 17; TEMP 36.9; O2SAT 95
[2022-01-03 06:00] VITALS: BMI 20.2
--- NOTE | 2022-01-03 06:08 | PC.NURSE ---
pt able to answer all orientation questions at beginning of shift, has had some intermittent confusion at times during night, but is easily reoriented, has remained on room air with O2 sats 90-98%, no complaints of pain, did complain of nausea one time and was treated per MAR, did have small bowel movement this shift
[2022-01-03 08:00] VITALS: BP 132/76; PULSE 89; RESP 16; TEMP 36.6; O2SAT 89
[2022-01-03 08:07] LABS: Basophils # 0.1 K/mm3 (0-0.2); Basophils % 0.5 % (0.1-2.0); Eosinophils # 0.1 K/mm3 (0.0-0.4); Eosinophils % 0.9 % (0.1-12.0); Hematocrit 34.8 % (37.0-47.0); Hemoglobin 11.8 g/dL (12.2-16.2); Lymphocytes # 2.2 K/mm3 (0.7-4.5); Lymphocytes % 20.9 % (10-50); Mean Corpuscular HGB Conc 33.8 g/dL (31.8-35.4); Mean Corpuscular Hemoglobin 31.3 pg (27.0-31.2); Mean Corpuscular Volume 92.6 fl (81-99); Mean Platelet Volume 7.6 fl (7.4-10.4); Monocytes # 0.7 K/mm3 (0.1-1.0); Monocytes % 6.2 % (1.7-9.3); Neutrophils # 7.6 K/mm3 (1.8-7.8); Neutrophils % 71.5 % (37.0-80.0); Platelet Count 252 K/mm3 (142-424); Red Blood Count 3.76 M/mm3 (4.20-5.40); Red Cell Distribution Width 13.1 % (11.5-17.5); White Blood Count 10.6 K/mm3 (4.8-10.8)
[2022-01-03 08:22] LABS: Chloride 97 mmol/L (98-107); Sodium 131 mmol/L (136-145)
[2022-01-03 08:24] LABS: Alanine Aminotransferase 29 U/L (12-78); Aspartate Amino Transferase 74 U/L (14-36); Blood Urea Nitrogen 8 mg/dl (7-17); Creatinine Clearance Estimated 37 mL/min (50-200); Estimated Glomerular Filt Rate 117 ml/min (>60); GFR (African American) 142 ML/MIN (>60)
[2022-01-03 08:25] LABS: Albumin Level 3.8 g/dl (3.5-5.0); Albumin/Globulin Ratio 1.4 (1.1-1.8); Alkaline Phosphatase 99 U/L (38-126); Anion Gap 8.8 mEq/L (5-15); Bilirubin,Total 0.6 mg/dl (0.2-1.3); Calcium 7.4 mg/dl (8.4-10.2); Carbon Dioxide 28 mmol/L (22.0-30.0); Globulin 2.8 g/dL (1.3-3.2); Glucose 87 mg/dl (74-100); Total Protein,Serum 6.6 g/dl (6.3-8.2)
[2022-01-03 08:30] LABS: Potassium 2.8 mmoL/L (3.5-5.1)
--- NOTE | 2022-01-03 09:03 | PC.NURSE ---
0830 - Nurse notified by Lab of Critical Lab value, report received from Sharmaine Pt. name and date of read back and verified. Potassium at 2.8. 0840 - Dr. Mcgill on unit reviewing pt. chart. Nurse notified MD of critical Potassium level. MD reports seeing lab value and v/u. No orders received at this time.
--- NOTE | 2022-01-03 09:10 | P.PN_ITS ---
Internal Medicine - PN: Subj *Date: 01/03/22 *Time: 09:10 Interval history: Over the last 24 hours patient has improved dramatically. She is much more cogent, oriented to place and year, and is able to follow commands and get up and move about the room with some assistance. She was unable to tolerate MRI yesterday morning because of some agitation, but has been able to take her home medication and we resumed this. I had ordered risperidone yesterday because of her severe agitation but as she improved through the day yesterday we canceled this order and she has not actually received any of this medication. Exam Vital signs and Labs for Last 24 Hours: Temp Pulse Resp BP Pulse Ox 98 F 89 16 132/76 89 L 01/03/22 08:00 01/03/22 08:00 01/03/22 08:00 01/03/22 08:00 01/03/22 08:00 Laboratory Results - last 24 hr 01/02/22 00:15: Vitamin B12 998 H 01/03/22 07:57: WBC 10.6, RBC 3.76 L, Hgb 11.8 L, Hct 34.8 L, MCV 92.6, MCH 31.3 H, MCHC 33.8, RDW 13.1, Plt Count 252, MPV 7.6, Neut % (Auto) 71.5, Lymph % (Auto) 20.9, [place] % (Auto) 6.2, Eos % (Auto) 0.9, Baso % (Auto) 0.5, Neut # (Auto) 7.6, Lymph # (Auto) 2.2, [place] # (Auto) 0.7, Eos # (Auto) 0.1, Baso # (Auto) 0.1 01/03/22 07:57: Sodium 131 L, Potassium 2.8 L* D, Chloride 97 L, Carbon Dioxide 28, Anion Gap 8.8, BUN 8, Creatinine 0.50 L D, Estimated Creat Clear 37, Estimated GFR 117, Est GFR ( Amer) 142 D, Glucose 87, Calcium 7.4 L, Total Bilirubin 0.6, AST 74 H D, ALT 29 D, Alkaline Phosphatase 99, Total Protein 6.6, Albumin 3.8, Globulin 2.8, Albumin/Globulin Ratio 1.4 I & O for Last 24 hours: Intake & Output 12/31/21 01/01/22 01/02/22 01/03/22 11:59 11:59 11:59 11:59 Intake Total 1870 Output Total 0 / 0 Balance 1870 Weight 125 lb 11.2 oz 128 lb 12.8 oz Microbiology Reports for the Last 24 Hours: Microbiology 01/01/22 17:30 Urine,Clean Catch Urine Culture - Preliminary Narrative: Patient appears weak, but is pleasant, talkative, no cranial nerve deficits. Much less agitated and anxious appearing than yesterday and is conversant and oriented x3. Anterior lung kim clear, heart rate regular. Abdomen soft, able to move all extremities well but is weak. No skin rash or breakdown. ENT exam clear Assessment and Plan (1) Confusion Status: Acute Category: Medical Code(s): R41.0 - Disorientation, unspecified (2) Acute delirium Status: Acute Category: Medical Code(s): R41.0 - Disorientation, unspecified - Assessment and plan all Dx Assessment and Plan for all problems:: I am unsure about the etiology of the acute delirium superimposed on her anxiety disorder. Plan will be to continue ceftriaxone given that this did cause temporal improvement, await urine culture results. Slightly hypokalemic today. Replace this orally. PT/OT evaluation to see if she would need to go back to the skilled care side at the [facility] where she is currently residing in personal care.
--- NOTE | 2022-01-03 10:15 | HMH.PTEV ---
Physical Therapy Evaluation Rehab PT IP Evaluation Start: 01/03/22 09:09 Freq: ONCE Status: Active Protocol: Document 01/03/22 10:11 PALMIRA (Rec: 01/03/22 10:15 PALMIRA [id number]) Subjective/History History History 86 y/o female who live on side at [facility] admitted to [facility] w/ AMS, confusion and agitation Subjective Subjective Pt pleasant this morning reports she knows where she is but does not know why she is here Rehab PT IP Eval Objective Appearance Patient Behavior Appropriate,Cooperative Patient Orientation Place,Name,Birthday,Year Difficulty following instructions none Speech Pattern Clear,Appropriate,Soft-Spoken Ambulation Patient Able to Ambulate Yes Ambulation Observation IP General Gait Pattern Observation Shuffling Step Ambulation Distance (feet) 3 Ambulation Assistive Device None Ambulation Ability Contact Guard/Hand Hold Balance Ability to Arise Able, uses arms to help Sitting Balance Steady, safe Standing Balance Steady, wide stance Dynamic Sitting Balance Ability Good Dynamic Standing Balance Ability Fair Transfers Bed Transfer Ability Contact Guard/Hand Hold Chair Transfer Ability Contact Guard/Hand Hold Sit to Stand Bed Transfer Ability Contact Guard/Hand Hold Sit to Stand Chair Transfer Ability Contact Guard/Hand Hold Rehab PT IP prob,goals,plan Problems Date of Evaluation: 01/03/22 PT IP Problems Bed Mobility,Transfers,Gait, Balance,Self care,Safety Rehab Potential Rehab Potential Good Equipment Needs Assistive Devices Straight Cane,Rolling / Wheeled Walker Plan PT Intervention Plan Bed Mobility,Transfers,Gait, Balance,Self care,Safety, Therapeutic Exercise PT Plan Frequency BID Duration LOS Discharge Goals Bed Transfer Ability Contact Guard/Hand Hold Sit to Stand Chair Transfer Ability Contact Guard/Hand Hold Ambulation Assistive Device Rolling Walker Ambulation Distance (feet) 10 Discharge Plan PT Discharge Plan Pt will benefit from skilled therapy while in [facility], after DC pt will benefit from continued skilled therapy to allow return to PLOF and PLOI allowing pt to continue in si
--- NOTE | 2022-01-03 10:27 | HMH.OTEV ---
OT Inpatient Evaluation Rehab OT IP Evaluation Start: 01/03/22 09:09 Freq: ONCE Status: Complete Protocol: Document 01/03/22 10:16 MARIUSZ (Rec: 01/03/22 10:26 MARIUSZ [id number]) Rehab OT IP Assessment Subjective History 86-year-old female has been a resident of a local personal care apartment living situation over the past couple of years who struggles with anxiety, chronic pain issues and some paranoia with ongoing mild dementia. She has been in a stable state over the past year or so, however has had increased pain over the past 4 to 6 weeks. We bumped up her gabapentin dose from nightly to twice daily and then 3 times daily about 3 to 4 weeks ago but she had increased somnolence and so the dose was back down to her normal nightly dose about 2 weeks ago. Nurses called us yesterday afternoon stating patient was confused, picking at environmental objects, agitated and withdrawing from care and they were worried about a stroke. We had her sent to the local emergency department for evaluation. Evaluation revealed essentially negative CT scan of head findings although final report is not available. Labs were essentially unremarkable but she was significantly altered from her baseline according to nursing staff and family members and was kept overnight for observation. 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
[2022-01-03 11:05] VITALS: BMI 20.2
[2022-01-03 12:00] VITALS: BP 135/72; PULSE 84; RESP 16; TEMP 36.6; O2SAT 96
[2022-01-03 16:00] VITALS: BP 147/77; PULSE 86; RESP 16; TEMP 36.8; O2SAT 93
--- NOTE | 2022-01-03 17:13 | PC.NURSE ---
1630 - Routine reassessment completed. VSS. Pt. A&O X3 to self, place, month and year, Pt. unsure of date states: is it Friday? Nurse reoriented pt. to situation and date. Pt. v/u. No acute changes noted since previous assessment. Pt. denies needs, will continue to monitor.
[2022-01-03 20:00] VITALS: O2SAT 93
[2022-01-04 04:00] VITALS: BP 136/64; PULSE 60; RESP 16; TEMP 36.6; O2SAT 94
[2022-01-04 06:53] LABS: Basophils # 0.1 K/mm3 (0-0.2); Basophils % 0.6 % (0.1-2.0); Eosinophils % 0.3 % (0.1-12.0); Hematocrit 34.5 % (37.0-47.0); Hemoglobin 11.9 g/dL (12.2-16.2); Lymphocytes # 1.7 K/mm3 (0.7-4.5); Lymphocytes % 19.5 % (10-50); Mean Corpuscular HGB Conc 34.4 g/dL (31.8-35.4); Mean Corpuscular Hemoglobin 31.2 pg (27.0-31.2); Mean Corpuscular Volume 90.8 fl (81-99); Mean Platelet Volume 7.5 fl (7.4-10.4); Monocytes # 0.7 K/mm3 (0.1-1.0); Monocytes % 7.4 % (1.7-9.3); Neutrophils # 6.4 K/mm3 (1.8-7.8); Neutrophils % 72.1 % (37.0-80.0); Platelet Count 268 K/mm3 (142-424); White Blood Count 8.8 K/mm3 (4.8-10.8)
[2022-01-04 07:03] LABS: Chloride 96 mmol/L (98-107)
[2022-01-04 07:04] LABS: Sodium 133 mmol/L (136-145)
[2022-01-04 07:06] LABS: Blood Urea Nitrogen 5 mg/dl (7-17); Creatinine Clearance Estimated 37 mL/min (50-200); Estimated Glomerular Filt Rate 117 ml/min (>60); GFR (African American) 142 ML/MIN (>60)
[2022-01-04 07:07] LABS: Anion Gap 13.4 mEq/L (5-15); Calcium 7.4 mg/dl (8.4-10.2); Carbon Dioxide 26 mmol/L (22.0-30.0); Glucose 76 mg/dl (74-100)
[2022-01-04 07:26] LABS: Potassium 2.4 mmoL/L (3.5-5.1)
[2022-01-04 07:45] VITALS: BP 131/74; PULSE 89; RESP 16; TEMP 36.9; O2SAT 94
--- NOTE | 2022-01-04 09:02 | PC.NURSE ---
Dr. Robert yadav this am of critical K of 2.4, and ordered k runs per mar.
[2022-01-04 11:07] VITALS: BP 129/70; PULSE 78; RESP 16; TEMP 36.8; O2SAT 94
[2022-01-04 15:15] VITALS: BP 134/67; PULSE 78; RESP 16; TEMP 36.8; O2SAT 93
[2022-01-04 19:47] VITALS: BP 150/69; PULSE 80; RESP 16; TEMP 36.9; O2SAT 94
--- NOTE | 2022-01-04 21:12 | HMH.ACPN2 ---
Internal Medicine - PN: Subj *Date: 01/04/22 *Time: 08:20 Interval history: Patient remained hemodynamically stable overnight. Labs reviewed this morning noting hypokalemia. Is nervous but talkative. States she is ready to go back to her home. Currently awaiting insurance approval for SNF. Complains of some mild nausea. No emesis. Having daily BMs. Afebrile. Exam Vital signs and Labs for Last 24 Hours: Temp Pulse Resp BP Pulse Ox 98.5 F 80 16 150/69 H 94 L 01/04/22 19:47 01/04/22 19:47 01/04/22 19:47 01/04/22 19:47 01/04/22 19:47 Laboratory Results - last 24 hr 01/01/22 17:30: Urine Color Yellow, Urine Appearance Clear, Urine pH 7.5, Ur Specific Warren 1.015, Urine Protein Negative, Urine Glucose (UA) Negative, Urine Ketones Negative, Urine Blood 1+, Urine Nitrate Negative, Urine Bilirubin Negative, Urine Urobilinogen 0.2, Ur Leukocyte Esterase Negative, Urine RBC 5-10, Urine WBC Occasional, Ur Squamous Epith Cells Occasional, Urine Bacteria 2+ 01/04/22 05:32: WBC 8.8, RBC 3.80 L, Hgb 11.9 L, Hct 34.5 L, MCV 90.8, MCH 31.2, MCHC 34.4, RDW 13.0, Plt Count 268, MPV 7.5, Neut % (Auto) 72.1, Lymph % (Auto) 19.5, [place] % (Auto) 7.4, Eos % (Auto) 0.3, Baso % (Auto) 0.6, Neut # (Auto) 6.4, Lymph # (Auto) 1.7, [place] # (Auto) 0.7, Eos # (Auto) 0.0, Baso # (Auto) 0.1 01/04/22 05:32: Sodium 133 L, Potassium 2.4 L*, Chloride 96 L, Carbon Dioxide 26, Anion Gap 13.4, BUN 5 L D, Creatinine 0.50 L, Estimated Creat Clear 37, Estimated GFR 117, Est GFR ( Amer) 142, Glucose 76, Calcium 7.4 L I & O for Last 24 hours: Intake & Output 01/01/22 01/02/22 01/03/2201/04/22 23:59 23:59 23:59 23:59 Intake Total 767 / 767 1164 / 1164 720 / 720 Output Total 0 / 200 400 / 400 Balance 767 / 767 1164 / 964 320 / 320 Weight 57.017 kg 57.017 kg 58.423 kg 57.788 kg Microbiology Reports for the Last 24 Hours: Microbiology 01/01/22 17:30 Urine,Clean Catch Urine Culture - Preliminary Gram Negative Rods Gram Negative Rods#2 Narrative: Alert, NAD on RA. appears weak, but is pleasant and talkative Normal CN 2-12, tremor, but no focal deficits. Much less agitated and anxious appearing than yesterday and is conversant and oriented x3. Anterior lung kim clear heart rate regular Abdomen soft, Non tender No skin rash or breakdown Assessment and Plan (1) Confusion Status: Acute Category: Medical Code(s): R41.0 - Disorientation, unspecified (2) Acute delirium Status: Acute Category: Medical Code(s): R41.0 - Disorientation, unspecified (3) UTI (urinary tract infection) Status: Acute Category: Medical Code(s): N39.0 - Urinary tract infection, site not specified (4) Hypokalemia Status: Acute Category: Medical Code(s): E87.6 - Hypokalemia (5) Hypothyroidism Status: Chronic Qualifiers: Hypothyroidism type: other Qualified Code(s): E03.8 - Other specified hypothyroidism Category: Medical Code(s): E03.9 - Hypothyroidism, unspecified - Assessment and plan all Dx Assessment and Plan for all problems:: 86-year-old female who came in with confusion. Overall doing better. Back to baseline mentation. Continues to be weak however. Awaiting approval from insurance to transfer back to [facility] under SNF status. We will continue antibiotics given concerning UA for leukourea. Still awaiting culture. Replacing K PO and IV, repeat labs in morning. - plan to complete 7d emperic course for UTI Anticipate discharge in the next day or 2.
[2022-01-05] VITALS: BP 165/71; PULSE 87; RESP 16; TEMP 36.9; O2SAT 96
[2022-01-05 04:00] VITALS: BP 174/82; PULSE 80; RESP 14; TEMP 36.9; O2SAT 96
[2022-01-05 05:06] VITALS: BMI 20.3
[2022-01-05 06:06] LABS: Basophils # 0.1 K/mm3 (0-0.2); Basophils % 0.7 % (0.1-2.0); Eosinophils # 0.1 K/mm3 (0.0-0.4); Eosinophils % 1.3 % (0.1-12.0); Hematocrit 33.7 % (37.0-47.0); Hemoglobin 11.5 g/dL (12.2-16.2); Lymphocytes # 2.1 K/mm3 (0.7-4.5); Lymphocytes % 23.2 % (10-50); Mean Corpuscular HGB Conc 34.1 g/dL (31.8-35.4); Mean Corpuscular Hemoglobin 31.5 pg (27.0-31.2); Mean Corpuscular Volume 92.3 fl (81-99); Mean Platelet Volume 7.2 fl (7.4-10.4); Monocytes # 0.8 K/mm3 (0.1-1.0); Monocytes % 9.2 % (1.7-9.3); Neutrophils # 5.9 K/mm3 (1.8-7.8); Neutrophils % 65.6 % (37.0-80.0); Platelet Count 259 K/mm3 (142-424); Red Blood Count 3.66 M/mm3 (4.20-5.40); Red Cell Distribution Width 13.2 % (11.5-17.5); White Blood Count 8.9 K/mm3 (4.8-10.8)
[2022-01-05 06:30] LABS: Chloride 94 mmol/L (98-107); Sodium 131 mmol/L (136-145)
[2022-01-05 06:33] LABS: Anion Gap 9.7 mEq/L (5-15); Blood Urea Nitrogen 3 mg/dl (7-17); Carbon Dioxide 30 mmol/L (22.0-30.0); Creatinine Clearance Estimated 36 mL/min (50-200); Estimated Glomerular Filt Rate 117 ml/min (>60); GFR (African American) 142 ML/MIN (>60)
[2022-01-05 06:34] LABS: Calcium 7.4 mg/dl (8.4-10.2); Glucose 81 mg/dl (74-100)
[2022-01-05 06:35] LABS: Potassium 2.7 mmoL/L (3.5-5.1)
--- NOTE | 2022-01-05 06:36 | PC.NURSE ---
Addendum entered by Lizabeth Swain RN 01/05/22 06:39: [address] Jones of critical potassium. No new orders at this time. Robert states he will correct it when he arrives to the facility. Original Note: 0636 Nurse notified by Lab of Critical Lab value, report received from Tico Schmid. name and date of read back and verified. Potassium at 2.7.
[2022-01-05 07:48] VITALS: BP 128/81; PULSE 85; RESP 16; TEMP 36.8; O2SAT 94
--- NOTE | 2022-01-05 08:30 | HMH.DCSUM ---
General - General Admission date:: 01/01/22 Discharge date: 01/05/22 HPI HPI: 86-year-old female has been a resident of a local personal care apartment living situation over the past couple of years who struggles with anxiety, chronic pain issues and some paranoia with ongoing mild dementia. She has been in a stable state over the past year or so, however has had increased pain over the past 4 to 6 weeks. We bumped up her gabapentin dose from nightly to twice daily and then 3 times daily about 3 to 4 weeks ago but she had increased somnolence and so the dose was back down to her normal nightly dose about 2 weeks ago. Nurses called us yesterday afternoon stating patient was confused, picking at environmental objects, agitated and withdrawing from care and they were worried about a stroke. We had her sent to the local emergency department for evaluation. Evaluation revealed essentially negative CT scan of head findings although final report is not available. Labs were essentially unremarkable but she was significantly altered from her baseline according to nursing staff and family members and was kept overnight for observation. Hospital Course Hospital Course: Ms. Henderson is an 86-year-old female who came in with confusion. Initial urine concerning for UTI with differential diagnosis including medication side effect, metabolic encephalopathy. She is responded well with initiation of fluids and antibiotics. Held her pain medication. Required no antipsychotics for her confusion. She is overall return to baseline mentation but remains weak. Physical therapy has been seeing her during her hospitalization. Recommended she return back to her halfway with skilled care however insurance is unfortunately denied this change in status. Therefore we will discharge her today to return back to [facility] on their assisted living/personal-care side. Plan to complete antibiotics with oral Omnicef. Additionally has had some low potassium during hospitalization. Initiated on oral potassium supplement. Urine cultures returned with low levels of bacteria however given improvement in mentation, will treat as presumed infection. Medically stable for discharge. We will plan to see her at the halfway for follow-up in the coming week. Objective Vital signs: Temp Pulse Resp BP Pulse Ox 97.9 F 60 16 136/64 94 L 01/04/22 04:00 01/04/22 04:00 01/04/22 04:00 01/04/22 04:00 01/04/22 04:00 Narrative: Alert, NAD on RA. appears weak, but is pleasant and talkative, shakiness to voice (baseline) Normal CN 2-12, tremor, but no focal deficits. conversant and oriented x3. Anterior lung kim clear heart rate regular Abdomen soft, Non tender No skin rash or breakdown Results Labs on day of discharge: Labs from last 24 hours 01/04/22 01/03/22 01/03/22 05:32 07:57 07:57 WBC 8.8 10.6 RBC 3.80 L 3.76 L Hgb 11.9 L 11.8 L Hct 34.5 L 34.8 L MCV 90.8 92.6 MCH 31.2 31.3 H MCHC 34.4 33.8 RDW 13.0 13.1 Plt Count 268 252 MPV 7.5 7.6 Neut % (Auto) 72.1 71.5 Lymph % (Auto) 19.5 20.9 King % (Auto) 7.4 6.2 Eos % (Auto) 0.3 0.9 Baso % (Auto) 0.6 0.5 Neut # (Auto) 6.4 7.6 Lymph # (Auto) 1.7 2.2 King # (Auto) 0.7 0.7 Eos # (Auto) 0.0 0.1 Baso # (Auto) 0.1 0.1 Sodium 131 L Potassium 2.8 L* D Chloride 97 L Carbon Dioxide 28 Anion Gap 8.8 BUN 8 Creatinine 0.50 L D Estimated Creat Clear 37 Estimated GFR 117 Est GFR ( Amer) 142 D Glucose 87 Calcium 7.4 L Total Bilirubin 0.6 AST 74 H D ALT 29 D Alkaline Phosphatase 99 Total Protein 6.6 Albumin 3.8 Globulin 2.8 Albumin/Globulin Ratio 1.4 Preliminary micro results at discharge 01/01/22 17:30 Urine Culture - Preliminary Urine,Clean Catch DS: Diagnosis - Discharge Diagnosis (1) Confusion Status: Acute (2) UT
[2022-01-05 11:07] VITALS: BP 157/92; PULSE 94; RESP 16; TEMP 36.9; O2SAT 94
--- NOTE | 2022-01-05 12:24 | PC.NURSE ---
pt is being discharged from The unit. Her POA is here to take her back to [place]. She is alert and mostly appropriate. Denies any pain, Has gotten up to BSC without issue. IV discontinued. Report called to [place].
== END 2022-01-05 12:45 | disposition home or self-care (01) ==
LOC: ER 19:00 → 2ND 20:09
PROVIDERS: Internal Medicine Adolescent Medicine; Admitting Provider Emergency Medicine; Emergency Provider Emergency Medicine; Visit Provider Internal Medicine Adolescent Medicine
DX: R41.0 Disorientation, unspecified (principal); N39.0 Urinary tract infection, site not specified; E87.6 Hypokalemia; E03.8 Other specified hypothyroidism; Z79.899 Other long term (current) drug therapy; Z20.822 Contact with and (suspected) exposure to COVID-19; M81.0 Age-related osteoporosis without current pathological fracture; F41.9 Anxiety disorder, unspecified; G89.29 Other chronic pain
CPT/HCPCS: G0378; 36415; 70450; 70551; 80048; 80053; 80305; 81001; 82140; 82607; 82962; 84443; 84484; 85025; 87086; 87088; 87186; 93306; 96375; 96376; 97162; 97165; 97535; 99284; C9803; J0696; J2405; U0003; U0005